=== PATIENT | male | born 1945 | race Caucasian/White ===

== ENCOUNTER 2017-12-07 08:00 | Outpatient (RCR) | payer MEDICARE, OTHER ==
[2017-09-14 08:20] VITALS: BP 118/75
--- NOTE | 2017-09-14 08:38 | ONC Progress Note - NP.Halsey ---
Patient History Date of Service Sep 14, 2017 Reason For Visit/HPI Patient is seen today in the infusion center for cycle 4 with Opdivo for his malignant melanoma of the scalp. He reports that he has a mild rash over his lower back and occasionally has itching in his left ear which last only 30 minutes and then goes away. He is currently using a steroid cream on his back as needed with good relief. No other areas of concern. No other side effects. Patient does report that he would like to go back to [place] for the summer months January, February, and March and would like to arrange treatment with Dr. Alston in [place]. I assured patient that as it got closer to that time that we would help assist a transition. Problem List (1) Melanoma of scalp Oncology History ONCOLOGY HISTORY 1. Malignant melanoma of scalp. a. Initial presentation with lesion on the left scalp, changing over the past six months prior to presentation. b. August 16, 2016: Biopsy of scalp lesion is performed. Pathology reveals malignant melanoma to 2.5 mm in depth. c. September 15, 2016: Patient undergoes wide local excision with sentinel lymph node biopsy. Pathology showed residual melanoma in the excision specimen , depth 1.1 mm. Scalp lymph node and lymph node in the parotid gland were positive for melanoma. Also, two of five sentinel lymph nodes were involved with melanoma (total of four of 10 positive lymph nodes). d. September 29, 2016: CT PET scan and MRI of brain are performed. There is no evidence of metastatic disease. e. November 03, 2016: Completion lymph node dissection, left parotidectomy with an additional two of 29 lymph nodes positive for melanoma. Patient is diagnosed with stage IIIC melanoma. f. Patient begins the S1404 clinical trial, and is randomized to the ipilimumab arm. g. 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 Patient also suffers subdural hematoma. He is treated with prednisone, Keppra recommended for three months. Subdural hematoma resolves spontaneously. h. Patient presents with recurrent mass behind left ear at site of scar. On July 11, 2017 this was surgically resected with pathology consistent with recurrent melanoma. i. Opdivo every 2 weeks started on 08/04/2017. 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 [place] Alcohol History He denies abuse Medications and Allergies Reported Medications Fluticasone Prop 50 Mcg Ns (FLONASE 50 MCG NS) 16 Gm [place].susp, 1 SPRAY NS BID , BOT 08/03/17 Oxycodone/Acetaminophen (PERCOCET 5/325 (OR EQUIV)) 1 Ea Tab, 1 - 2 EA PO Q4H Y , #30 01/25/13 Mometasone/Formoterol (Dulera 100 Mcg/5 Mcg Inhaler) 13 Gm Hfa.aer.ad, 13 GM IH DAILY Y 01/22/13 Discontinued Scripts Levofloxacin 500 Mg Tab (LEVAQUIN 500 MG TAB) 500 Mg Tablet, 500 MG PO DAILY for 5 Days, #5 TAB Prov:FOREIGN CALDERA ALLERGY NURSE-BC, ONC 08/24/17 Prednisone (PREDNISONE) 1 Mg Tab, 4 MG PO QDAY, #120 TAB 1 Refill Take 4mg daily x 7 days then try to decrease to 3mg daily Prov:FOREIGN CALDERA ALLERGY NURSE-BC, ONC 08/17/17 Allergies: Coded Allergies: No Known Drug Allergies (Verified , 01/25/13) Review of System/Physical Exam Review of Systems All Systems Reviewed/Normal: Yes, Except as Noted HEENT: Other (itching of the left ear occasionally) Skin: Positive for Skin Rash (lower back with mild itching that comes and goes) Physical Exam Vital Signs Temperature: 97.7 Pulse: 81 BP Systolic: 118 BP Diastolic: 75 Respiratory Rate: 18 O2 SAT: 94 O2 Delivery: Height (inches) 68.00 Weight lb: 166 Weight oz: Weight Kg (Maurilio): Pain: 0 ECOG Score: 0 General: Stable, Well Developed, Well Nourished HEENT: No Trauma, No Conjunctivitis, No Icterus, No Mucositis, No Oral Thrush Neck: Supple Lungs: Clear to Auscultation Heart: Regular Rate Abdomen: Soft and Nontender, No Hepatosplenomegaly, No Masses Extremities: No Cyanosis, No Clubbing, No Edema Lymphadenopathy: No Cervical Psychiatric: Mood appears normal Skin: Skin Rashes (mild diffusely scattered macule rash on lower back without evidence of erythema or infection, ), Other Diagnostic Studies Diagnostic Studies Laboratory Item Value Date Time White Blood Count 5.0 k/uL 09/14/17 08 Hemoglobin 14.8 g/dL 09/14/17 08 Hematocrit 42.8 % 09/14/17 08 Platelet Count 231 K/uL 09/14/17 0826 Neutrophils (%) (Auto) 45.5 % 09/14/17 0826 Lymphocytes (%) (Auto) 36.9 % 09/14/17 0826 Neutrophils # (Auto) 2.3 K/uL 09/14/17 0826 Lymphocytes # (Auto) 1.8 K/uL 09/14/17 0826 Sodium Level 136 mmol/L L 09/14/17 08 Laboratory Tests 09/14/17 08:26: Assessment and Plan Assessment & Plan Recurrent malignant melanoma of scalp. Juan Jose seems to be doing quite well with nivolumab infusions and denies any concerns. He is here to receive his fourth cycle today. He has developed a mild diffusely scattered rash over his lower back with occasional episodes of itching. He is currently using a cortisone cream which helps. He has not used an antihistamine but if symptoms increase we did discuss trying to use it. He would like to travel and spending the summer months in [place]. He would like to receive his treatments with Dr. Alston in [facility]. We will assist with his transition as it gets closer. He is scheduled to follow with Dr. Moncada n 10-05-17. I personally spent a total of 20 minutes. Of that 20 minutes was counseling/ coordination of patient's care. See my note above for details. Copies to: TAYLOR PERES NANCY J ALLERGY NURSE-BC, ONC Sep 14, 2017 08:38
[2017-09-14 11:10] VITALS: BP 111/67
[2017-09-28 08:11] VITALS: BP 109/89
[2017-09-28] MEDS: NS(*) 0.9% 100 ML BAG 100 ML IVPB PRN (08:42)
[2017-09-28 10:45] VITALS: BP 121/74
--- NOTE | 2017-09-28 19:24 | ONCOLOGY FOLLOW UP NOTE ---
EVENT DATE: September 28, 2017 REASON FOR FOLLOWUP Recurrent malignant melanoma of scalp. CHIEF COMPLAINT Sinus congestion. INTERIM HISTORY Juan Jose returns to clinic for a follow-up visit today. He is here to receive a nivolumab infusion. He reports that things have been going pretty well since our last visit. He has had no particular problems with his ongoing infusion, with the exception of some moderate "itchiness" of his arms and trunk. For the most part moisturizers and other topicals have been helpful, and he has had no worsening of rash. He reports no fever. He has had some sinus congestion, and he had recently been on a course of antibiotics for presumed sinusitis. The antibiotics brought significant improvement in his symptoms. He has been doing sinus washes at home. He reports an occasional cough and chest tightness, but none of this today. He has had no hemoptysis. His appetite is good, and his weight has been stable. He has been quite active since our last visit. He has had no problems with bowels or bladder. REVIEW OF SYSTEMS Otherwise negative, and all systems were reviewed. ONCOLOGY HISTORY 1. Malignant melanoma of scalp. a. Initial presentation with lesion on the left scalp, changing over the past six months prior to presentation. b. August 16, 2016: Biopsy of scalp lesion is performed. Pathology reveals malignant melanoma to 2.5 mm in depth. c. September 15, 2016: Patient undergoes wide local excision with sentinel lymph node biopsy. Pathology showed residual melanoma in the excision specimen , depth 1.1 mm. Scalp lymph node and lymph node in the parotid gland were positive for melanoma. Also, two of five sentinel lymph nodes were involved with melanoma (total of four of 10 positive lymph nodes). d. September 29, 2016: CT PET scan and MRI of brain are performed. There is no evidence of metastatic disease. e. November 03, 2016: Completion lymph node dissection, left parotidectomy with an additional two of 29 lymph nodes positive for melanoma. Patient is diagnosed with stage IIIC melanoma. f. Patient begins the S1404 clinical trial, and is randomized to the ipilimumab arm. g. 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 Patient also suffers subdural hematoma. He is treated with prednisone, Keppra recommended for three months. Subdural hematoma resolves spontaneously. h. Patient presents with recurrent mass behind left ear at site of scar. On July 11, 2017 this was surgically resected with pathology consistent with recurrent melanoma. i. July 2017: Initiation of nivolumab infusions. PAST MEDICAL HISTORY The patient is otherwise quite healthy. PAST SURGICAL HISTORY Please see history of present illness. Also, he has undergone left inguinal hernia repair, right shoulder surgery, and sinus surgery. CURRENT MEDICATIONS 1. Percocet p.r.n. 2. Dulera inhaler. 3. Flonase. 4. Keppra. 5. Prednisone 5 mg p.o. daily. ALLERGIES No known drug allergies. SOCIAL HISTORY Patient is a never smoker. He has about one alcoholic beverage per week. There is no history of illicit drug use. He lives at home with his . FAMILY HISTORY There is a history of Hodgkin's lymphoma in his mother, lung cancer in a maternal uncle, colon cancer in a paternal uncle. There is no known family history of melanoma or pancreatic malignancy. VITAL SIGNS Temperature is 98.0, blood pressure 109/89, heart rate is 82, respirations 16, oxygen saturation is 93% on room air. PHYSICAL EXAMINATION GENERAL: Patient is alert and oriented times three, in no apparent distress, sitting in the exam room chair. He is in good spirits and quite interactive. HEENT: Exam reveals anicteric sclerae. No significant oropharyngeal lesions. LUNGS: Clear to auscultation bilaterally. HEART: Exam reveals regular rate and rhythm. NEUROLOGIC: Exam is grossly nonfocal, although I did not test his gait today. EXTREMITIES: Exam reveals no edema, clubbing or cyanosis. SKIN: Exam reveals no dry skin over the arms, but no rash. LABORATORY STUDIES Reviewed per the [facility] record. ASSESSMENT AND PLAN Recurrent malignant melanoma of scalp. Juan Jose continues to do quite well symptomatically. He has had minimal side effects from ongoing nivolumab infusions, and nothing to suggest significant immune-related toxicity. As discussed, the plan will be for him to continue the nivolumab infusions per protocol. He will follow up with Estella Cavazos, nurse practitioner, in one month. I would tentatively plan to see him back in two months. He does report that he will likely be returning to [place] (the [facility]), for the spring months, potentially into the summer. This was discussed previously with Estella Cavazos, as well. I have assured him today that we would be more than happy to help with transition of care, forwarding of documents, etc. [facility] MAN[facility]ATTAN HOSPITALEvaristo
[2017-10-05 08:37] VITALS: BP 130/81
--- NOTE | 2017-10-05 09:12 | ONC Progress Note - NP.Halsey ---
Patient History Date of Service Oct 05, 2017 Reason For Visit/HPI ` Patient is seen in the Center today for concern of increased cough, shortness of breath, wheezing with yellow to green discolored sputum and green sinus drainage. Patient denies any fever or chills, no bone aches or generalized fatigue but reports that overall he just does not feel well. Patient has a prior history of sinus infections and usually can prevent them from settling in his chest with sinus washes. Unfortunately he feels that it is now in his chest and he is concerned about developing pneumonia. Patient is seen in the infusion center for treatment with Opdivo for his malignant melanoma of the scalp. He has tolerated treatment well without any of the possible side effects such as pneumonitis, colitis, thyroiditis. Patient is currently on prednisone 3 mg tab daily for recent history of autoimmune adrenal insufficiency. He is slowly tapering off of the prednisone. Oncology History ONCOLOGY HISTORY 1. Malignant melanoma of scalp. a. Initial presentation with lesion on the left scalp, changing over the past six months prior to presentation. b. August 16, 2016: Biopsy of scalp lesion is performed. Pathology reveals malignant melanoma to 2.5 mm in depth. c. September 15, 2016: Patient undergoes wide local excision with sentinel lymph node biopsy. Pathology showed residual melanoma in the excision specimen , depth 1.1 mm. Scalp lymph node and lymph node in the parotid gland were positive for melanoma. Also, two of five sentinel lymph nodes were involved with melanoma (total of four of 10 positive lymph nodes). d. September 29, 2016: CT PET scan and MRI of brain are performed. There is no evidence of metastatic disease. e. November 03, 2016: Completion lymph node dissection, left parotidectomy with an additional two of 29 lymph nodes positive for melanoma. Patient is diagnosed with stage IIIC melanoma. f. Patient begins the S1404 clinical trial, and is randomized to the ipilimumab arm. g. 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 Patient also suffers subdural hematoma. He is treated with prednisone, Keppra recommended for three months. Subdural hematoma resolves spontaneously. h. Patient presents with recurrent mass behind left ear at site of scar. On July 11, 2017 this was surgically resected with pathology consistent with recurrent melanoma. i. Opdivo every 2 weeks started on 08/04/2017. 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 [place] Alcohol History He denies abuse Smoking History: No Smoking Status: Never Smoker Exposure to Second Hand Smoke?: No Medications and Allergies Active Scripts Albuterol Sulfate (VENTOLIN HFA) 18 Gm Inh, 2 PUFF INH Q4-6H, #1 INH 1 Refill Prov:FOREIGN CALDERA DATA OFFICER-BC, ONC 10/05/17 Azithromycin (Z-PACK) 250 Mg Tablet, 0 PO QDAY, #6 DOSE-PACK Prov:FOREIGN CALDERA DATA OFFICER-BC, ONC 10/05/17 Reported Medications Dexamethasone (DEXAMETHASONE) 1 Mg Tab, 3 MG FT DAILY, TAB 09/28/17 Fluticasone Prop 50 Mcg Ns (FLONASE 50 MCG NS) 16 Gm [place].susp, 1 SPRAY NS BID , BOT 08/03/17 Oxycodone/Acetaminophen (PERCOCET 5/325 (OR EQUIV)) 1 Ea Tab, 1 - 2 EA PO Q4H Y , #30 01/25/13 Mometasone/Formoterol (Dulera 100 Mcg/5 Mcg Inhaler) 13 Gm Hfa.aer.ad, 13 GM IH DAILY Y 01/22/13 Allergies: Coded Allergies: No Known Drug Allergies (Verified , 01/25/13) Review of System/Physical Exam Review of Systems All Systems Reviewed/Normal: Yes, Except as Noted Respiratory: Positive for Cough, Positive for Expectoration, Positive for Shortness of Breath, Positive for Wheezing HEENT: Nasal Discharge Hematologic: Positive for Fatigue Physical Exam Vital Signs Temperature: 98.5 Pulse: 76 BP Systolic: 130 BP Diastolic: 81 Respiratory Rate: 16 O2 SAT: 97 O2 Delivery: Height (inches) 68.00 Weight lb: 166 Weight oz: Weight Kg (Maurilio): [phone] Pain: 0 ECOG Score: 1 General: Stable, Well Developed, Well Nourished, Not In Acute Distress HEENT: No Trauma, No Mucositis, No Oral Thrush, Sinus Tenderness (frontal and maxillary sinus tenderness with palpation) Neck: Supple Lungs: Not Clear to Auscultation (bilateral wheezing with expiration and rhales with inhalion) Extremities: No Edema Lymphadenopathy: No Cervical Psychiatric: Mood appears normal, Affect appears normal, Other (his is with him today) Skin: Other Diagnostic Studies Diagnostic Studies Laboratory Laboratory Tests 09/14/17 08:26 09/28/17 08:20 Laboratory Tests 09/14/17 08:26: White Blood Count 5.0, Hemoglobin 14.8, Hematocrit 42.8, Platelet Count 231, Neutrophils (%) (Auto) 45.5, Lymphocytes (%) (Auto) 36.9, Neutrophils # (Auto) 2.3, Lymphocytes # (Auto) 1.8, Magnesium Level 2.1, Thyroid Stimulating Hormone (TSH) 1.57, Free Thyroxine 1.01, Total Triiodothyronine 83 09/28/17 08:20: Sodium Level 138, Potassium Level 3.8, Chloride Level 104, Carbon Dioxide Level 22, Blood Urea Nitrogen 12, Creatinine 0.80, Glomerular Filtration Rate Calc > 60.0, Random Glucose 81, Calcium Level 9.1, Total Bilirubin 0.8, Aspartate Amino Transf (AST/SGOT) 24, Alanine Aminotransferase (ALT/SGPT) 25, Alkaline Phosphatase 61, Total Protein 7.1, Albumin 3.8 Assessment and Plan Assessment & Plan Patient is seen in the clinic today for probable sinusitis or upper respiratory infection. Patient has wheezing, cough and congestion leading to shortness of breath. He has green sinus discharge which is increased over the last 10 days. I will treat him with a Z-Gerson and albuterol inhaler. I will see patient next week with Opdivo treatment. Patient has a history of recurrent malignant melanoma of scalp. Juan Jose seems to be doing quite well with nivolumab infusions and denies any concerns. I personally spent a total of 20 minutes. Of that 20 minutes was counseling/ coordination of patient's care. See my note above for details. FOREIGN CALDERA DATA OFFICER-BC, ONC Oct 05, 2017 09:12
[2017-10-12 08:10] VITALS: BP 130/82
--- NOTE | 2017-10-12 10:28 | ONC Progress Note - NP.Halsey ---
Patient History Date of Service Oct 12, 2017 Reason For Visit/HPI Patient is seen in the clinic today for treatment with Opdivo cycle 6 for his malignant melanoma the scalp.. Patient reports that he is tolerating treatment without difficulty without possible side effects of colitis or thyroiditis. Patient is currently on prednisone 3 mg tablet for history of autoimmune adrenal insufficiency. Patient was seen in the clinic last week with increased cough, shortness of breath, wheezing with yellow to green discolored sputum and green sinus drainage. Patient denied any fever or chills, no bone aches or generalized fatigue but reported that overall he just does not feel well. He shared that he has a prior history of sinus infections and usually can prevent them from settling in his chest with sinus washes. He was started on a Z-Gerson and reports that his symptoms slowly improved but now have returned with the above symptoms. Patient was started on an inhaler and is using that with some relief. Patient also increased his prednisone to 10 mg tabs 3 days and reports that he had no relief so went back to the 3 mg tablet. Problem List (1) Cough in adult (2) Melanoma of scalp Oncology History ONCOLOGY HISTORY 1. Malignant melanoma of scalp. a. Initial presentation with lesion on the left scalp, changing over the past six months prior to presentation. b. August 16, 2016: Biopsy of scalp lesion is performed. Pathology reveals malignant melanoma to 2.5 mm in depth. c. September 15, 2016: Patient undergoes wide local excision with sentinel lymph node biopsy. Pathology showed residual melanoma in the excision specimen , depth 1.1 mm. Scalp lymph node and lymph node in the parotid gland were positive for melanoma. Also, two of five sentinel lymph nodes were involved with melanoma (total of four of 10 positive lymph nodes). d. September 29, 2016: CT PET scan and MRI of brain are performed. There is no evidence of metastatic disease. e. November 03, 2016: Completion lymph node dissection, left parotidectomy with an additional two of 29 lymph nodes positive for melanoma. Patient is diagnosed with stage IIIC melanoma. f. Patient begins the S1404 clinical trial, and is randomized to the ipilimumab arm. g. 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 Patient also suffers subdural hematoma. He is treated with prednisone, Keppra recommended for three months. Subdural hematoma resolves spontaneously. h. Patient presents with recurrent mass behind left ear at site of scar. On July 11, 2017 this was surgically resected with pathology consistent with recurrent melanoma. i. Opdivo every 2 weeks started on 08/04/2017. 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 [place] Alcohol History He denies abuse Smoking History: No Smoking Status: Never Smoker Exposure to Second Hand Smoke?: No Medications and Allergies Active Scripts Albuterol Sulfate (VENTOLIN HFA) 18 Gm Inh, 2 PUFF INH Q4-6H, #1 INH 1 Refill Prov:FOREIGN CALDERA MEDICAL OFFICE REPRESENTATIVE-BC, ONC 10/05/17 Azithromycin (Z-PACK) 250 Mg Tablet, 0 PO QDAY, #6 DOSE-PACK Prov:FOREIGN CALDERA MEDICAL OFFICE REPRESENTATIVE-BC, ONC 10/05/17 Reported Medications Dexamethasone (DEXAMETHASONE) 1 Mg Tab, 3 MG FT DAILY, TAB 09/28/17 Fluticasone Prop 50 Mcg Ns (FLONASE 50 MCG NS) 16 Gm [place].susp, 1 SPRAY NS BID , BOT 08/03/17 Oxycodone/Acetaminophen (PERCOCET 5/325 (OR EQUIV)) 1 Ea Tab, 1 - 2 EA PO Q4H Y , #30 01/25/13 Mometasone/Formoterol (Dulera 100 Mcg/5 Mcg Inhaler) 13 Gm Hfa.aer.ad, 13 GM IH DAILY Y 01/22/13 Allergies: Coded Allergies: No Known Drug Allergies (Verified , 01/25/13) Review of System/Physical Exam Review of Systems All Systems Reviewed/Normal: Yes, Except as Noted Constitutional: Positive for Recent Infection Respiratory: Positive for Cough, Positive for Expectoration (Green in color), Positive for Shortness of Breath, Positive for Wheezing Hematologic: Positive for Fatigue, Positive for Weakness Physical Exam Vital Signs Temperature: 97.4 Pulse: 70 BP Systolic: 130 BP Diastolic: 82 Respiratory Rate: 16 O2 SAT: 95 O2 Delivery: Height (inches) 68.00 Weight lb: 166 Weight oz: Weight Kg (Maurilio): [phone] Pain: 0 ECOG Score: 1 (Patient has increased fatigue today) General: Stable, Well Developed, Well Nourished, Not In Acute Distress HEENT: No Trauma, No Conjunctivitis, No Icterus, No Mucositis, No Oral Thrush, Sinus Tenderness Lungs: Not Clear to Auscultation (bilateral wheezing and inspiratory rhales) Heart: Regular Rate, Regular Rhythm, No Gallops Abdomen: Soft and Nontender, No Hepatosplenomegaly, No Masses Extremities: No Cyanosis, No Clubbing, No Edema Lymphadenopathy: No Cervical, No Subclavicular Skin: No Skin Rashes, No Bruising, No Purpura, Other Diagnostic Studies Diagnostic Studies Laboratory CBC today shows a white cell count of 5700, hemoglobin of 15.5, hematocrit of 44.9 with platelet count of 244,000. Eosinophils are elevated at 7.5, neutrophil is decreased at 44.9 absolute neutrophil count is 2500 Laboratory Tests 09/14/17 08:26 10/12/17 08:20 Laboratory Tests 09/14/17 08:26: White Blood Count 5.0, Hemoglobin 14.8, Hematocrit 42.8, Platelet Count 231, Neutrophils (%) (Auto) 45.5, Lymphocytes (%) (Auto) 36.9, Neutrophils # (Auto) 2.3, Lymphocytes # (Auto) 1.8, Magnesium Level 2.1, Thyroid Stimulating Hormone (TSH) 1.57, Free Thyroxine 1.01, Total Triiodothyronine 83 10/12/17 08:20: Sodium Level 139, Potassium Level 3.6, Chloride Level 105, Carbon Dioxide Level 25, Blood Urea Nitrogen 13, Creatinine 0.90, Glomerular Filtration Rate Calc > 60.0, Random Glucose 83, Calcium Level 9.2, Total Bilirubin 0.8, Aspartate Amino Transf (AST/SGOT) 26, Alanine Aminotransferase (ALT/SGPT) 32, Alkaline Phosphatase 65, Total Protein 7.1, Albumin 3.8 Assessment and Plan Assessment & Plan Patient is seen in the clinic today for treatment with Opdivo for his melanoma of the scalp. Patient previously was treated with a Z-Gerson for probable sinusitis and upper respiratory infection. Patient continues to have wheezing, cough and congestion leading to shortness of breath. Patient is using an albuterol inhaler with some relief. I will do a chest x-ray today to further evaluate patient's chronic condition as it has been going on for approximately 1 month overall. I will treat patient with Levaquin 750 mg tab 10 days. Written prescription was given to patient because [employer] was down. Patient will be seen in the clinic with his next treatment but certainly will call if his symptoms do not improve. Chest x-ray is currently pending patient will receive results once report is completed. X-ray was done cousin of chronic cough, continue possible infection, monitoring for side effect of pneumonitis with Opdivo and monitoring for melanoma. I personally spent a total of 30 minutes. Of that 20 minutes was counseling/ coordination of patient's care. See my note above for details. FOREIGN CALDERA MEDICAL OFFICE REPRESENTATIVE-BC, ONC Oct 12, 2017 10:28
[2017-10-12] MEDS: NS(*) 0.9% 100 ML BAG 100 ML IVPB PRN (10:30)
--- NOTE | 2017-10-12 11:04 | RADIOLOGY IMAGING REPORT ---
FACILITY: [facility] PATIENT NAME: Juan Jose Kelly : 1945 MR: [id number] V: [id number] EXAM DATE: ORDERING PHYSICIAN: NAOMIE MEDEL TECHNOLOGIST: Location: [facility] [place] Patient: Juan Jose Kelly : 1945 Visit/Account:[id number] Date of Sevice: 10/12/2017 Exam type: CHEST SINGLE VIEW History: Cancer patient Comparison: January 22, 2013. Findings: The lungs are free of acute effusions, infiltrates or edema. Cardiac silhouette is normal in size. Trachea is in midline. There is very mild right hilar prominence.. If of concern CT of the chest ma y be helpful IMPRESSION: 1. Mild right hilar prominence although no evidence of focal infiltrates. Report Dictated By: Bianca Bobby MD at 10/12/2017 10:58 AM Report E-Signed By: Bianca Bobby MD at 10/12/2017 11:01 AM WSN:[email or web address]
[2017-10-12 11:07] LABS: PLATELET COUNT, AUTOMATED 244 K/uL (150-450)
--- NOTE | 2017-10-26 08:27 | ONC Progress Note - NP.Halsey ---
Patient History Date of Service Oct 26, 2017 Reason For Visit/HPI Patient is seen in the clinic today for treatment with Opdivo cycle 7 for his malignant melanoma the scalp. Patient reports that he is feeling well status post antibiotic therapy. He continues to have clear sinus drainage which is irritating the back of his throat causing him to cough. Occasionally he has tightness of the chest and uses his inhaler. He has not been exercising his previous due to not feeling well. He does feel that he can start exercising again. He usually walks around the park for his exercise. Patient reports that on the left temporal area he has a new palpable movable soft tissue area approximately 2 mm in size. He noticed this over the last week. He is scheduled to see Dr. Aren Harry on Tuesday and will have this evaluated. Continues on prednisone 3 mg tablet daily. Problem List (1) Cough in adult (2) Melanoma of scalp Oncology History ONCOLOGY HISTORY 1. Malignant melanoma of scalp. a. Initial presentation with lesion on the left scalp, changing over the past six months prior to presentation. b. August 16, 2016: Biopsy of scalp lesion is performed. Pathology reveals malignant melanoma to 2.5 mm in depth. c. September 15, 2016: Patient undergoes wide local excision with sentinel lymph node biopsy. Pathology showed residual melanoma in the excision specimen , depth 1.1 mm. Scalp lymph node and lymph node in the parotid gland were positive for melanoma. Also, two of five sentinel lymph nodes were involved with melanoma (total of four of 10 positive lymph nodes). d. September 29, 2016: CT PET scan and MRI of brain are performed. There is no evidence of metastatic disease. e. November 03, 2016: Completion lymph node dissection, left parotidectomy with an additional two of 29 lymph nodes positive for melanoma. Patient is diagnosed with stage IIIC melanoma. f. Patient begins the S1404 clinical trial, and is randomized to the ipilimumab arm. g. 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 Patient also suffers subdural hematoma. He is treated with prednisone, Keppra recommended for three months. Subdural hematoma resolves spontaneously. h. Patient presents with recurrent mass behind left ear at site of scar. On July 11, 2017 this was surgically resected with pathology consistent with recurrent melanoma. i. Opdivo every 2 weeks started on 08/04/2017. 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 [place] Alcohol History He denies abuse Smoking History: No Smoking Status: Never Smoker Exposure to Second Hand Smoke?: No Medications and Allergies Active Scripts Albuterol Sulfate (VENTOLIN HFA) 18 Gm Inh, 2 PUFF INH Q4-6H, #1 INH 1 Refill Prov:FOREIGN [employer] PERFORMANCE MANAGEMENT CONSULTANT-BC, ONC 10/05/17 Azithromycin (Z-PACK) 250 Mg Tablet, 0 PO QDAY, #6 DOSE-PACK Prov:FOREIGN [employer] PERFORMANCE MANAGEMENT CONSULTANT-BC, ONC 10/05/17 Reported Medications Dexamethasone (DEXAMETHASONE) 1 Mg Tab, 3 MG FT DAILY, TAB 09/28/17 Fluticasone Prop 50 Mcg Ns (FLONASE 50 MCG NS) 16 Gm [place].susp, 1 SPRAY NS BID , BOT 08/03/17 Oxycodone/Acetaminophen (PERCOCET 5/325 (OR EQUIV)) 1 Ea Tab, 1 - 2 EA PO Q4H Y , #30 01/25/13 Mometasone/Formoterol (Dulera 100 Mcg/5 Mcg Inhaler) 13 Gm Hfa.aer.ad, 13 GM IH DAILY Y 01/22/13 Allergies: Coded Allergies: No Known Drug Allergies (Verified , 01/25/13) Review of System/Physical Exam Review of Systems All Systems Reviewed/Normal: Yes, Except as Noted Respiratory: Positive for Cough HEENT: Nasal Discharge (clear sinus discharge patient reports that he does sinus wash several times a day.), Other (irritation to the posterior pharynxs without pain) Hematologic: Positive for Fatigue (mild fatigue this is improved) Skin: Positive for Other (new skin area 2 mm in size raised in palpable on the left parietal area of the scalp) Physical Exam Vital Signs Temperature: 97.4 Pulse: 70 BP Systolic: 130 BP Diastolic: 82 Respiratory Rate: 16 O2 SAT: 95 O2 Delivery: Height (inches) 68.00 Weight lb: 0 Weight oz: Weight Kg (Maurilio): [id number] Pain: 0 ECOG Score: 0 General: Stable, Well Developed, Well Nourished, Not In Acute Distress HEENT: No Trauma, No Conjunctivitis, No Icterus, No Mucositis, No Oral Thrush, No Sinus Tenderness, Other (erythema beefy red noted in the posterior pharynx with a papule irritation. No signs and symptoms of candidiasis noted. No foul breath smell. Good oral hygiene.) Neck: Supple Lungs: Clear to Auscultation Heart: Regular Rate, Regular Rhythm Abdomen: Soft and Nontender, No Hepatosplenomegaly, Other (bowel sounds are active) Extremities: No Cyanosis Lymphadenopathy: No Cervical, No Subclavicular, No Axillary Psychiatric: Mood appears normal, Affect appears normal Skin: No Skin Rashes, No Bruising, No Purpura, Other (proximally at 2 mm movable palpable nodule on the left parietal scalp. This is new from previous examination and above previous skin graft area from removable of melanoma. No other areas noted over the scalp, face and behind the ears.) Diagnostic Studies Diagnostic Studies Laboratory Item Value Date Time White Blood Count 6.0 k/uL 10/26/17 0830 Hemoglobin 16.0 g/dL 10/26/17 0830 Hematocrit 46.4 % 10/26/1730 Platelet Count 253 K/uL 10/26/17 0830 Neutrophils (%) (Auto) 43.3 % 10/26/17 0830 Lymphocytes (%) (Auto) 37.7 % 10/26/1730 Neutrophils # (Auto) 2.6 K/uL 10/26/17 0830 Lymphocytes # (Auto) 2.3 K/uL 10/26/17 0830 Thyroid Stimulating Hormone (TSH) 1.57 uIU/ml 09/14/17 0826 Free Thyroxine 1.01 ng/dl 09/14/17 0826 Total Triiodothyronine 83 ng/dL 09/14/17 0826 Laboratory Tests 10/12/17 08:20 10/12/17 08:53 Laboratory Tests 09/14/17 08:26: Magnesium Level 2.1, Thyroid Stimulating Hormone (TSH) 1.57, Free Thyroxine 1.01 , Total Triiodothyronine 83 10/12/17 08:20: Sodium Level 139, Potassium Level 3.6, Chloride Level 105, Carbon Dioxide Level 25, Blood Urea Nitrogen 13, Creatinine 0.90, Glomerular Filtration Rate Calc > 60.0, Random Glucose 83, Calcium Level 9.2, Total Bilirubin 0.8, Aspartate Amino Transf (AST/SGOT) 26, Alanine Aminotransferase (ALT/SGPT) 32, Alkaline Phosphatase 65, Total Protein 7.1, Albumin 3.8 10/12/17 08:53: White Blood Count 5.7, Red Blood Count 4.74, Hemoglobin 15.5, Hematocrit 44.9, Mean Corpuscular Volume 94.8, Mean Corpuscular Hemoglobin 32.8, Mean Corpuscular Hemoglobin Concent 34.6, Red Cell Distribution Width 12.8, Platelet Count 244, Mean Platelet Volume 9.0, Neutrophils (%) (Auto) 44.9, Lymphocytes (% ) (Auto) 38.1, Monocytes (%) (Auto) 8.4, Eosinophils (%) (Auto) 7.5, Basophils ( %) (Auto) 1.1, Nucleated RBC Relative Count (auto) 0.0, Neutrophils # (Auto) 2.5 , Lymphocytes # (Auto) 2.2, Monocytes # (Auto) 0.5, Eosinophils # (Auto) 0.4, Basophils # (Auto) 0.1, Nucleated RBC Absolute Count (auto) 0.00 Assessment and Plan Assessment & Plan Patient is seen in the clinic today for treatment with Opdivo for his melanoma of the scalp. Patient previously was treated with a Z-Gerson for probable sinusitis and upper respiratory infection. Patient continues to have wheezing, cough and congestion leading to shortness of breath. Patient is using an albuterol inhaler with some relief. Chest x-ray on 10-12-17 showed Mild right hilar prominence although no evidence of focal infiltrates . Patient was treated with Levaquin 750 mg tab 10 days. Patient did not call to report worsening of symptoms. Today he reports that symptoms are resolving and he is feeling significantly better. He continues with sinus rinses, nasal spray, an inhaler as needed. Patient continues to have clear sinus discharge. He has not tried an antihistamine and is willing to try 3-5 days to see if the discharge will decrease allowing the back of his throat to resolve. This may decrease his cough. He will start exercising by walking. Patient is scheduled to see Dr. Aren Harry on Tuesday with his . He has a new palpable nodule small in size that will be evaluated. This area is directly above previous skin grafts and removal of a melanoma. Overall patient is tolerating Opdivo without difficulty. I personally spent a total of 20 minutes. Of that 20 minutes was counseling/ coordination of patient's care. See my note above for details. Copies to: AREN HARRY MD, NANCY J PERFORMANCE MANAGEMENT CONSULTANT-BC, ONC Oct 26, 2017 08:27
[2017-10-26 08:42] VITALS: BP_SYST 124; BP_SYST 142; BP_DIAS 104; BP_DIAS 84
[2017-10-26] MEDS: NS(*) 0.9% 100 ML BAG 100 ML IVPB PRN (09:00)
[2017-10-26 10:29] VITALS: BP 113/65
[2017-11-02 08:28] VITALS: BP 116/77
--- NOTE | 2017-11-02 10:30 | RADIOLOGY IMAGING REPORT ---
FACILITY: [facility] PATIENT NAME: Juan Jose Kelly : 1945 MR: [id number] V: [id number] EXAM DATE: ORDERING PHYSICIAN: NAOMIE MEDEL TECHNOLOGIST: Location: [facility] [place] Patient: Juan Jose Kelly : 1945 Visit/Account:[id number] Date of Sevice: 11/02/2017 CTA CHEST WW/O CNTR (PULM ANG) Provided history: Dyspnea. History of melanoma. Additional pertinent history: none TECHNIQUE: Pulmonary embolus protocol - Thin-slice axial imaging of the chest was performed during maximal pulmo nary arterial opacification with intravenous nonionic iodinated contrast. 3D coronal slab MIPs and 2D reconstructions in the coronal and sagittal planes were performed to aid in pulmonary embolus detect ion. Director Of [employer] images have been stored on PACS. EKG gating: no Contrast: 75 ml Isovue 370 One of the following dose optimization techniques was utilized in the performance of this exam: Autom ated exposure control; adjustment of the mA and/or kV according to the patient's size; or use of an i terative reconstruction technique. Specific details can be referenced in the facility's radiology C T exam operational policy. COMPARISON STUDIES: none FINDINGS: Angiographic Findings: Pulmonary arteries: There are no filling defects in the main, right, left, lobar, segmental or visual ized sub-segmental branches of the pulmonary arterial system Thoracic aorta: negative. Additional non-angiographic findings: Lungs / pleura / nancy: No infiltrate or effusion. 3 x 4 mm noncalcified nodule right middle lobe, image 70. This is along the course of the minor fiss ure and is probably a benign perifissural lymph node. Another noncalcified nodule right lower lobe, image 162 measures 3 x 4 mm. Additional punctate micro nodules elsewhere. Lower neck: negative Mediastinum: negative Heart / pericardium: negative Other Vessels: negative Body wall: negative Upper abdomen: negative Lymph nodes: negative Bones: negative IMPRESSION: 1. No CT evidence of acute pulmonary embolism. 2. No acute pulmonary disease. 3. There are 2 noncalcified nodules described in the right lung with additional punctate micronodule s elsewhere. Largest average diameter nodule is 3.5 mm. In this patient with known melanoma, sugges t low-dose CT chest in 6 months, unless comparison to any outside studies reveals stability. Call report attempted, unable to be rendered due to poor phone connection. I have asked our informat ion non emergency services ambulance driver is to read report to the referring office. Report Dictated By: Aidan Romero MD at 11/02/2017 9:56 AM Report E-Signed By: Aidan Romero MD at 11/02/2017 10:24 AM WSN:[email or web address]
--- NOTE | 2017-11-02 11:05 | Oncology Note ---
Patient is seen in the clinic today to review CT angiogram of the chest completed earlier this morning. Please see Dr. Neville's dictation. In review of the diagnostic study there is no evidence of a pulmonary embolism. Patient does have 2 noncalcified nodules in the right lung with additional punctate micronodules elsewhere. The largest nodule is 3.5 mm. The recommendation is to suggest a low-dose CT of the chest in 6 months. In addition patient is already scheduled to follow with Dr. Aren Harry ENT for evaluation of a palpable nodule on the left upper parietal lobe of the scalp. Because patient continues to have sinus pressure and sinus drainage status post antibiotics and a clear CT scan, it is recommended that he be evaluated by Dr. Aren Harry. This was discussed with patient and spouse. They both agree with plan of care. Patient does report that he has had prior surgeries of the sinuses and a history of chronic sinusitis. He is completing sinus nasal rinse several times daily and more recently reports that the sinus drainage has been clear to scant yellow. Again patient has had no fever or chills. He denies shortness of breath but feels that just occasionally he cannot obtain a deep breath. There was no indication of pneumonitis found on recent CT scan. Patient is scheduled to follow with me in 1 week with his infusion. FOREIGN CALDERA LOADING INSPECTOR-BC, ONC Nov 02, 2017 11:05
--- NOTE | 2017-11-02 18:37 | ONCOLOGY FOLLOW UP NOTE ---
EVENT DATE: November 02, 2017 REASON FOR FOLLOWUP Recurrent malignant melanoma of scalp. CHIEF COMPLAINT Cough, wheezing. INTERIM HISTORY Juan Jose returns to clinic for a follow-up visit today. He is accompanied by his . He continues on nivolumab infusions per protocol. For the most part, he reports that he has been tolerating these just fine. Unfortunately, he has continued to have a nagging cough, and this has progressed somewhat to wheezing. He reports no fever. He does state that his chest "tightens up a little" with exertion, leading to modest shortness of breath. He is not sure if his oxygen levels have been low. He reports no palpitations. He does have a very modestly productive cough without hemoptysis. He has been on several antibiotics recently, with some transient improvement in his symptoms, but they have not definitively improved/resolved altogether. He reports also a small bump on his left scalp, and he and his had planned to visit with Dr. Harry in ENT, but this appointment could not be made recently. They are going to try again. Otherwise, his appetite seems to be picking up, although he has lost a few pounds as he has gone through immunotherapy treatments. He reports no nausea. He has had no problems with his bowel habits. He does have insomnia from time to time. REVIEW OF SYSTEMS Otherwise negative, and all systems were reviewed. ONCOLOGY HISTORY 1. Malignant melanoma of scalp. a. Initial presentation with lesion on the left scalp, changing over the past six months prior to presentation. b. August 16, 2016: Biopsy of scalp lesion is performed. Pathology reveals malignant melanoma to 2.5 mm in depth. c. September 15, 2016: Patient undergoes wide local excision with sentinel lymph node biopsy. Pathology showed residual melanoma in the excision specimen , depth 1.1 mm. Scalp lymph node and lymph node in the parotid gland were positive for melanoma. Also, two of five sentinel lymph nodes were involved with melanoma (total of four of 10 positive lymph nodes). d. September 29, 2016: CT PET scan and MRI of brain are performed. There is no evidence of metastatic disease. e. November 03, 2016: Completion lymph node dissection, left parotidectomy with an additional two of 29 lymph nodes positive for melanoma. Patient is diagnosed with stage IIIC melanoma. f. Patient begins the S1404 clinical trial, and is randomized to the ipilimumab arm. g. 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 Patient also suffers subdural hematoma. He is treated with prednisone, Keppra recommended for three months. Subdural hematoma resolves spontaneously. h. Patient presents with recurrent mass behind left ear at site of scar. On July 11, 2017 this was surgically resected with pathology consistent with recurrent melanoma. i. July 2017: Initiation of nivolumab infusions. PAST MEDICAL HISTORY The patient is otherwise quite healthy. PAST SURGICAL HISTORY Please see history of present illness. Also, he has undergone left inguinal hernia repair, right shoulder surgery, and sinus surgery. CURRENT MEDICATIONS 1. Percocet p.r.n. 2. Dulera inhaler. 3. Flonase. 4. Keppra. 5. Prednisone 5 mg p.o. daily. ALLERGIES No known drug allergies. SOCIAL HISTORY Patient is a never smoker. He has about one alcoholic beverage per week. There is no history of illicit drug use. He lives at home with his . FAMILY HISTORY There is a history of Hodgkin's lymphoma in his mother, lung cancer in a maternal uncle, colon cancer in a paternal uncle. There is no known family history of melanoma or pancreatic malignancy. VITAL SIGNS Temperature is 99.2, blood pressure 116/77, heart rate is 77, respirations 16, oxygen saturation is 95% on room air. Weight is 74.3 kg. PHYSICAL EXAMINATION GENERAL: Patient is alert and oriented times three, in no apparent distress, sitting in the exam room chair. He is interactive and quite pleasant. HEENT: Exam reveals anicteric sclerae. No significant oropharyngeal lesions. NEUROLOGIC: Exam is grossly nonfocal, and his gait today. LUNGS: Exam reveals wheezing bilaterally. HEART: Exam reveals regular rate and rhythm. SKIN: Exam reveals no concerning rash or lesions. He does have a very small raised, normal colored lesion over the left scalp that is nontender. LABORATORY STUDIES Reviewed per the [employer] record. IMAGING None today. ASSESSMENT AND PLAN Recurrent malignant melanoma. For the most part, Juan Jose seems to be tolerating ongoing nivolumab infusions without obvious significant toxicity. We did discuss his ongoing sinus congestion and now pulmonary symptoms to include wheezing and perhaps some subjective shortness of breath. We discussed possible etiologies for these symptoms, in particular his pulmonary symptoms. Of concern would be for potential pneumonitis due to his ongoing immunotherapy, but this seems less likely at this point. He does have a history of asthma/ reactive airways disease in childhood, but this has not been problematic for years. He has never smoked. I do not think that he has pneumonia clinically, but with his history of recurrent melanoma he is at risk of pulmonary embolus. We will have him ambulate in the hallway today with pulse oximeter to see if his oxygen saturations drop. I will send him for a CT angiogram of the chest to further evaluate his symptoms. We will have him return to clinic later today after his CT scan is performed so that we may offer appropriate therapy. I will plan to have him follow up with Estella Cavazos in one week, when he is here to tentatively receive his next nivolumab infusion. MTDD
--- NOTE | 2017-11-02 18:41 | ONCOLOGY FOLLOW UP NOTE ---
EVENT DATE: November 02, 2017 ADDENDUM (copy to Dr. Aren Harry) MTDD
[2017-11-09 08:13] VITALS: BP 132/90
[2017-11-09] MEDS: NS(*) 0.9% 100 ML BAG 100 ML IVPB PRN (09:00)
[2017-11-09 10:03] VITALS: BP 118/73
[2017-11-23 08:07] VITALS: BP 114/74
[2017-11-23] MEDS: NS(*) 0.9% 100 ML BAG 100 ML IVPB PRN (08:32)
--- NOTE | 2017-11-23 09:19 | ONC Progress Note - NP.Halsey ---
Patient History Date of Service Nov 23, 2017 Reason For Visit/HPI Patient is seen in the clinic today for treatment with Opdivo cycle 9. Overall patient reports that he is feeling very well and feels that he has recovered from his previous shortness of breath and possibly upper respiratory infection. He is having some constipation occasionally and takes a stool softener as needed. He is able to exercise daily. He recently followed with Dr. Aren Harry and the palpable nodule on the left upper scalp was positive for melanoma. This is been removed and patient is following with Dr. Harry in the near future. Patient questioned about a CT scan of the chest abdomen and pelvis. He recently had a CT angiogram which was unremarkable. I told patient I felt that we could continue without a CT for a couple more treatments. He agrees with this plan. He continues on prednisone 3 mg tablet daily. He does feel that he can start exercising again. He usually walks around the park for his exercise. Patient reports that on the left temporal area he has a new palpable movable soft tissue area approximately 2 mm in size. He noticed this over the last week. He is scheduled to see Dr. Aren Harry on Tuesday and will have this evaluated. Continues on prednisone 3 mg tablet daily. Oncology History ONCOLOGY HISTORY 1. Malignant melanoma of scalp. a. Initial presentation with lesion on the left scalp, changing over the past six months prior to presentation. b. August 16, 2016: Biopsy of scalp lesion is performed. Pathology reveals malignant melanoma to 2.5 mm in depth. c. September 15, 2016: Patient undergoes wide local excision with sentinel lymph node biopsy. Pathology showed residual melanoma in the excision specimen , depth 1.1 mm. Scalp lymph node and lymph node in the parotid gland were positive for melanoma. Also, two of five sentinel lymph nodes were involved with melanoma (total of four of 10 positive lymph nodes). d. September 29, 2016: CT PET scan and MRI of brain are performed. There is no evidence of metastatic disease. e. November 03, 2016: Completion lymph node dissection, left parotidectomy with an additional two of 29 lymph nodes positive for melanoma. Patient is diagnosed with stage IIIC melanoma. f. Patient begins the S1404 clinical trial, and is randomized to the ipilimumab arm. g. 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 Patient also suffers subdural hematoma. He is treated with prednisone, Keppra recommended for three months. Subdural hematoma resolves spontaneously. h. Patient presents with recurrent mass behind left ear at site of scar. On July 11, 2017 this was surgically resected with pathology consistent with recurrent melanoma. i. Opdivo every 2 weeks started on 08/04/2017. Chest x-ray for chronic cough with Mild right hilar prominence although no evidence of focal infiltrates j. Melanoma lesion excised by Dr. Aren Harry October 2017, left frontal scalp. 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 [place] Alcohol History He denies abuse Smoking History: No Smoking Status: Never Smoker Exposure to Second Hand Smoke?: No Medications and Allergies Active Scripts Prednisone (PREDNISONE) 1 Mg Tab, 2 MG PO QDAY for 30 Days, #30 TAB 1 Refill Prov:FOREIGN [employer] PROJECT ACCOUNT MANAGER-BC, ONC 11/23/17 Methylprednisolone (METHYLPREDNISOLONE) 4 Mg Tab.ds.pk, 4 MG PO DIRECTED, #1 TAB Prov:FOREIGN [employer] PROJECT ACCOUNT MANAGER-BC, ONC 11/02/17 Albuterol Sulfate (VENTOLIN HFA) 18 Gm Inh, 2 PUFF INH Q4-6H, #1 INH 1 Refill Prov:FOREIGN CALDERA PROJECT ACCOUNT MANAGER-BC, ONC 10/05/17 Reported Medications Levothyroxine Sodium (LEVOTHYROXINE SODIUM) 25 Mcg Tablet, 25 MCG PO QDAY 11/02/17 Fluticasone Prop 50 Mcg Ns (FLONASE 50 MCG NS) 16 Gm [facility].susp, 1 SPRAY NS BID , BOT 08/03/17 Oxycodone/Acetaminophen (PERCOCET 5/325 (OR EQUIV)) 1 Ea Tab, 1 - 2 EA PO Q4H Y , #30 01/25/13 Mometasone/Formoterol (Dulera 100 Mcg/5 Mcg Inhaler) 13 Gm Hfa.aer.ad, 13 GM IH DAILY Y 01/22/13 Allergies: Coded Allergies: No Known Drug Allergies (Verified , 01/25/13) Review of System/Physical Exam Review of Systems All Systems Reviewed/Normal: Yes, Except as Noted Respiratory: Positive for Shortness of Breath (significantly improved, patient has a history of COPD.) Gastrointestinal: Constipation Skin: Positive for Other (2 mm raised palpable left frontal scalp lesion removed, scab remains.) Physical Exam Vital Signs Temperature: 97.3 Pulse: 68 BP Systolic: 114 BP Diastolic: 74 Respiratory Rate: 16 O2 SAT: 98 O2 Delivery: Height (inches) 68.00 Weight lb: 0 Weight oz: Weight Kg (Maurilio): [id number] Pain: 0 ECOG Score: 0 General: Stable, Well Developed, Well Nourished, Not In Acute Distress HEENT: No Trauma, No Conjunctivitis, No Icterus, No Mucositis, No Oral Thrush Neck: Supple Lungs: Clear to Auscultation Heart: Regular Rate, Regular Rhythm, No Gallops Abdomen: Soft and Nontender, No Hepatosplenomegaly, Other (bowel sounds are active) Extremities: No Cyanosis, No Clubbing, No Edema Lymphadenopathy: No Cervical Psychiatric: Mood appears normal Skin: No Skin Rashes, No Bruising, No Purpura, Other (left frontal scalp lesion removed, no erythema or symptoms of infection. No other lesions noted over the scalp.) Diagnostic Studies Diagnostic Studies Laboratory Laboratory Tests 10/26/17 08:30 11/23/17 08:18 Laboratory Tests 09/14/17 08:26: Total Triiodothyronine 83 10/12/17 08:53: Red Blood Count 4.74, Mean Corpuscular Volume 94.8, Mean Corpuscular Hemoglobin 32.8, Mean Corpuscular Hemoglobin Concent 34.6, Red Cell Distribution Width 12.8 , Mean Platelet Volume 9.0, Monocytes (%) (Auto) 8.4, Eosinophils (%) (Auto) 7.5 , Basophils (%) (Auto) 1.1, Nucleated RBC Relative Count (auto) 0.0, Monocytes # (Auto) 0.5, Eosinophils # (Auto) 0.4, Basophils # (Auto) 0.1, Nucleated RBC Absolute Count (auto) 0.00 10/26/17 08:30: White Blood Count 6.0, Hemoglobin 16.0, Hematocrit 46.4, Platelet Count 253, Neutrophils (%) (Auto) 43.3, Lymphocytes (%) (Auto) 37.7, Neutrophils # (Auto) 2.6, Lymphocytes # (Auto) 2.3, Magnesium Level 2.2, Thyroid Stimulating Hormone (TSH) 1.12, Free Thyroxine 1.15, Free Triiodothyronine 2.8 11/23/17 08:18: Sodium Level 136, Potassium Level 3.5, Chloride Level 104, Carbon Dioxide Level 22, Blood Urea Nitrogen 13, Creatinine 0.80, Glomerular Filtration Rate Calc > 60.0, Random Glucose 92, Calcium Level 8.6, Total Bilirubin 0.6, Aspartate Amino Transf (AST/SGOT) 20, Alanine Aminotransferase (ALT/SGPT) 31, Alkaline Phosphatase 52, Total Protein 6.5, Albumin 3.6 Assessment and Plan Assessment & Plan Patient is seen in the clinic today for treatment with Opdivo for his melanoma of the scalp. He is scheduled for cycle 9 today given every 2 weeks. Patient is tolerating treatment without difficulty. Recent melanoma of the left scalp removed by Dr. Aren Harry, we will need to obtain pathology. No other areas noted on skin exam. Patient remains on 2 mg prednisone for at least 2 more weeks and then we will try to decrease prednisone to 1 mg tab for a month. Patient agrees with this plan of care. Patient will continue to exercise. No concerns today. Plan: Prednisone 2 mg tab 2 weeks and then decrease to 1 mg 4 weeks. Refill sent [facility]. Patient recently had CT angiogram of the chest which was unremarkable. CT chest abdomen and pelvis to be completed after cycle 11 or 12. Patient to return in 2 weeks with Opdivo. Obtain pathology from Dr. Aren Harry on recent positive melanoma in the left frontal scalp I personally spent a total of 20 minutes. Of that 20 minutes was counseling/ coordination of patient's care. See my note above for details. Copies to: AREN HARRY MD; NAOMIE MEDEL MD, NANCY J PROJECT ACCOUNT MANAGER-BC, ONC Nov 23, 2017 09:19
[~2017-12-07] VITALS: Ht 172.7 cm; Wt 75.4 kg
[~2017-12-07 08:00] MED LIST: ALB18R INH; ALTEPLASE RECOMB 2 MG VIAL IVP PRN; AZIT-17 PO; COM14R INH; DEX1 FT; DEXTROSE 5%(*) 100 ML BAG 100 ML IVPB PRN; DOC100 PO; DUL100/5PT IH; FLUT16SP19 NS; HEPARIN FLSH (PORT) 500 UN/5ML IVP PRN; IOPAMIDOL 76% 75 ML INFUS BTL 75 ML ONE; LEVO-85 PO; LEVO25TA61 PO; LIDOCAINE/SOD BICARB 8.4% SYR ID PRN; METH4TAB66 PO; NIVOLUMAB 100 MG SDV 200 MG, NIVOLUMAB 40 MG/4 ML SDV 40 MG in NS(*) 0.9% 100 ML BAG 10... IV ONE; NS 0.9% 150 ML BAG 150 ML ONE; NS(*) 0.9% 500 ML BAG 500 ML IV PRN; OMEG-11 PO; OXYC1TAB54 PO; OXYC20TA86 PO; PER PO; PRE1 PO; PRED-420 PO; PRED20TA6 PO; WATER STERILE 10 ML VIAL IVP PRN
[2017-12-07 08:04] VITALS: BP 106/74
[2017-12-07] MEDS: NS(*) 0.9% 100 ML BAG 100 ML IVPB PRN (08:30)
[2017-12-07] MEDS ORDERED: NIVOLUMAB 100 MG SDV 200 MG, NIVOLUMAB 40 MG/4 ML SDV 40 MG in NS(*) 0.9% 100 ML BAG 10... IV ONE ×2 (09:45→10:00)
--- NOTE | 2017-12-07 18:30 | ONCOLOGY FOLLOW UP NOTE ---
EVENT DATE: December 07, 2017 REASON FOR FOLLOWUP Recurrent malignant melanoma of scalp. CHIEF COMPLAINT Wheezing. INTERIM HISTORY Juan Jose returns to clinic for a follow-up visit today. He is accompanied by his and friend. He continues on nivolumab infusions per protocol. He reports that he has been feeling about the same in general, and that he has had minimal side effects, if any, from the nivolumab. He does report some ongoing itchiness , but this has been easily taken care of with topicals. He also reports that he has been dealing with occasional wheezing, especially with exertion. He does tend to feel somewhat short of breath when this happens, but he uses inhalers, and his symptoms almost immediately improve. He reports no productive cough, and he has had no hemoptysis. He has had a good appetite, and his weight has been stable. He has had no significant nausea. He reports no abdominal pain or changes in bowel habits. He denies new urinary symptoms. He does report that he plans to return to the [place], [place] area, likely toward the beginning of January, and he plans to followup with Dr. Alston at the [facility] there. REVIEW OF SYSTEMS Otherwise negative, and all systems were reviewed. ONCOLOGY HISTORY 1. Malignant melanoma of scalp. a. Initial presentation with lesion on the left scalp, changing over the past six months prior to presentation. b. August 16, 2016: Biopsy of scalp lesion is performed. Pathology reveals malignant melanoma to 2.5 mm in depth. c. September 15, 2016: Patient undergoes wide local excision with sentinel lymph node biopsy. Pathology showed residual melanoma in the excision specimen , depth 1.1 mm. Scalp lymph node and lymph node in the parotid gland were positive for melanoma. Also, two of five sentinel lymph nodes were involved with melanoma (total of four of 10 positive lymph nodes). d. September 29, 2016: CT PET scan and MRI of brain are performed. There is no evidence of metastatic disease. e. November 03, 2016: Completion lymph node dissection, left parotidectomy with an additional two of 29 lymph nodes positive for melanoma. Patient is diagnosed with stage IIIC melanoma. f. Patient begins the S1404 clinical trial, and is randomized to the ipilimumab arm. g. 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 Patient also suffers subdural hematoma. He is treated with prednisone, Keppra recommended for three months. Subdural hematoma resolves spontaneously. h. Patient presents with recurrent mass behind left ear at site of scar. On July 11, 2017 this was surgically resected with pathology consistent with recurrent melanoma. i. July 2017: Initiation of nivolumab infusions. PAST MEDICAL HISTORY The patient is otherwise quite healthy. PAST SURGICAL HISTORY Please see history of present illness. Also, he has undergone left inguinal hernia repair, right shoulder surgery, and sinus surgery. CURRENT MEDICATIONS 1. Percocet p.r.n. 2. Dulera inhaler. 3. Flonase. 4. Keppra. 5. Prednisone 5 mg p.o. daily. ALLERGIES No known drug allergies. SOCIAL HISTORY Patient is a never smoker. He has about one alcoholic beverage per week. There is no history of illicit drug use. He lives at home with his . FAMILY HISTORY There is a history of Hodgkin's lymphoma in his mother, lung cancer in a maternal uncle, colon cancer in a paternal uncle. There is no known family history of melanoma or pancreatic malignancy. VITAL SIGNS Temperature is 96.6, blood pressure 106/74, heart rate is 77, respirations 16, oxygen saturation is 96% on room air. PHYSICAL EXAMINATION GENERAL: Patient is alert and oriented times three, in no apparent distress, sitting in the exam room chair. He is in good spirits, and quite interactive and pleasant. HEENT: Exam reveals anicteric sclerae. LUNGS: Exam reveals clear lungs bilaterally. HEART: Exam reveals regular rate and rhythm. NEUROLOGIC: Exam is grossly nonfocal. EXTREMITIES: Exam reveals no edema, clubbing or cyanosis. There is no erythema or tenderness to palpation of the extremities. LABORATORY STUDIES Reviewed per the [facility] record. ASSESSMENT AND PLAN Recurrent malignant melanoma. Juan Jose continues to tolerate ongoing nivolumab infusions without any evidence of immune-mediated toxicity beyond some very mild itching from time to time. We discussed his ongoing issues with periodic wheezing. He does seem to have an element of reactive airways disease. He had prior imaging that showed no evidence of pneumonitis, for example. I have recommended that he discuss things further with Dr. Angel to see whether the reactive airways disease could be improved. Patient agrees to make a phone call for an appointment. As discussed, he will continue with nivolumab infusions per protocol, and without alteration. We will try to help him make arrangements for followup and ongoing nivolumab infusions once he gets to [place]. I will plan to see him back in clinic in about one month, or sooner if there are questions or concerns. MTDD
== END 2017-12-12 ==
LOC: ONC 08:00
PROVIDERS: ATTEND Internal Medicine Medical Oncology
DX: Z51.11 Encounter for antineoplastic chemotherapy (principal); C43.4 Malignant melanoma of scalp and neck; Z79.899 Other long term (current) drug therapy; R06.02 Shortness of breath; K59.00 Constipation, unspecified
CPT/HCPCS: 71045; 71275; 83735; 84439; 84443; 84480; 84481; 85025; 85027; 96361; 96365; 96413; 96415; G0463; J7050; J9299; Q9967; 82040; 82247; 82310; 82374; 82435; 82565; 82947; 84075; 84132; 84155; 84295; 84450; 84460; 84520; 99212

== ENCOUNTER 2018-01-25 08:00 | Outpatient (RCR) | payer MEDICARE, OTHER ==
[2017-12-21] MEDS: NS(*) 0.9% 100 ML BAG 100 ML IVPB PRN (09:28)
[2017-12-21 10:01] VITALS: BP 132/90
[2017-12-21 10:15] VITALS: BP 126/72
[2018-01-04 08:10] VITALS: BP 117/101
[2018-01-04] MEDS: NS(*) 0.9% 100 ML BAG 100 ML IVPB PRN (08:30)
[2018-01-04 14:06] VITALS: BP 116/82
[2018-01-05 11:32] VITALS: BP 124/85
--- NOTE | 2018-01-06 17:47 | ONCOLOGY FOLLOW UP NOTE ---
EVENT DATE: January 05, 2018 REASON FOR FOLLOWUP Recurrent malignant melanoma of scalp. CHIEF COMPLAINT Bowel irregularity, skin nodule below left ear. INTERIM HISTORY Juan Jose returns to clinic for a follow-up visit today. He is accompanied by his . For the most part, he has been feeling better since our last visit. He has had a visit with his primary care doctor, and he is now using a nebulizer and a new inhaler with better control over his reactive airway disease. He reports no shortness of breath, wheezing, or productive cough today. He denies fever. He has had no severe abdominal pain, per se, but he has had some ongoing bowel irregularity. He reports no diarrhea, melena, or hematochezia. He denies new urinary symptoms. He has had no diffuse skin rash. The patient does plan to return to the [place], [place] area in about one month. He does plan to follow up at the [facility] there. In addition, he has visited with Dr. Harry in ENT, and another skin nodule has been removed from just below his left ear. Surgical pathology is pending from that specimen. REVIEW OF SYSTEMS Otherwise negative, and all systems are reviewed. ONCOLOGY HISTORY 1. Malignant melanoma of scalp. a. Initial presentation with lesion on the left scalp, changing over the past six months prior to presentation. b. August 16, 2016: Biopsy of scalp lesion is performed. Pathology reveals malignant melanoma to 2.5 mm in depth. c. September 15, 2016: Patient undergoes wide local excision with sentinel lymph node biopsy. Pathology showed residual melanoma in the excision specimen , depth 1.1 mm. Scalp lymph node and lymph node in the parotid gland were positive for melanoma. Also, two of five sentinel lymph nodes were involved with melanoma (total of four of 10 positive lymph nodes). d. September 29, 2016: CT PET scan and MRI of brain are performed. There is no evidence of metastatic disease. e. November 03, 2016: Completion lymph node dissection, left parotidectomy with an additional two of 29 lymph nodes positive for melanoma. Patient is diagnosed with stage IIIC melanoma. f. Patient begins the S1404 clinical trial, and is randomized to the ipilimumab arm. g. 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 Patient also suffers subdural hematoma. He is treated with prednisone, Keppra recommended for three months. Subdural hematoma resolves spontaneously. h. Patient presents with recurrent mass behind left ear at site of scar. On July 11, 2017 this was surgically resected with pathology consistent with recurrent melanoma. i. July 2017: Initiation of nivolumab infusions. PAST MEDICAL HISTORY The patient is otherwise quite healthy. PAST SURGICAL HISTORY Please see history of present illness. Also, he has undergone left inguinal hernia repair, right shoulder surgery, and sinus surgery. CURRENT MEDICATIONS 1. Percocet p.r.n. 2. Dulera inhaler. 3. Flonase. 4. Keppra. 5. Prednisone 5 mg p.o. daily. ALLERGIES No known drug allergies. SOCIAL HISTORY Patient is a never smoker. He has about one alcoholic beverage per week. There is no history of illicit drug use. He lives at home with his . FAMILY HISTORY There is a history of Hodgkin's lymphoma in his mother, lung cancer in a maternal uncle, colon cancer in a paternal uncle. There is no known family history of melanoma or pancreatic malignancy. VITAL SIGNS Temperature is 97.5, blood pressure 124/85, heart rate is 66, respirations 16, oxygen saturation is 97% on room air. PHYSICAL EXAMINATION GENERAL: Patient is alert and oriented times three, in no apparent distress, sitting in the exam room chair. He is in good spirits, and quite interactive. HEENT: Exam reveals anicteric sclerae. He does have a small incision and sutures under his left ear. NEUROLOGIC: Exam is grossly nonfocal and his gait is normal. SKIN: Exam is otherwise unremarkable. EXTREMITIES: Exam reveals no edema, clubbing or cyanosis. There is no erythema or tenderness to palpation of the extremities. LABORATORY STUDIES Reviewed per the [facility] record. IMAGING None today. ASSESSMENT AND PLAN Recurrent melanoma of scalp. I had a good visit with Juan Jose and his today. Symptomatically, he continues to do quite well with ongoing checkpoint inhibitor therapy. He has had improvement in his pulmonary symptoms, and this is encouraging. He has visited in the interim with Dr. Harry in ENT, and he recently had a small skin nodule removed from just under the left ear. There are concerns at this point that this could represent another recurrence of melanoma, but his surgical pathology is still pending. We will follow up on this. We spent time discussing that if this happens to be a benign nodule, I would recommend that he continue with nivolumab infusions. He agrees with this. On the other hand, if we see unfortunate evidence of another melanoma recurrence despite ongoing immunotherapy, we will need to consider a change in management. Either way, I do think he would be best served by undergoing another CT PET scan in the next few weeks. I would like to visit with him again before he leaves for [place], and we will arrange for this to happen. Juan Jose and his had several further questions for me today, and I believe I answered all of their questions to their satisfaction. MTDD
--- NOTE | 2018-01-10 16:10 | RADIOLOGY IMAGING REPORT ---
FAC[place] [facility] [place] NAME: Juan Jose Kelly : 1945 MR: [id number] V: [id number] EXAM DATE: ORDERING PHYSICIAN: NAOMIE MEDEL TECHNOLOGIST: Location: [facility] Patient: Juan Jose Kelly : 1945 Visit/Account:[id number] Date of Sevice: 01/10/2018 EXAMINATION: MRI Brain without intravenous contrast MRI Brain with intravenous contrast HISTORY: Headache. Scalp melanoma. COMPARISON: Noncontrast head CT dated 05/27/2017. TECHNIQUE: Multi-planar, multi-sequence brain MRI was performed before and after IV gadolinium. CONTRAST: 15 mL of IV MultiHance FINDINGS: Brain volume: Normal. Sagittal midline structures: Negative. Ventricles: Negative. Acute ischemic changes: None. Hemorrhage: None. Masses / edema: None. Enhancement: Negative. Molina-white: Negative. White matter: A few T2/FLAIR hyperintensities in the deep white matter bilaterally. Vessels: Negative. Extra-axial: Negative. Calvarium / scalp: Scalp defect on the left. Otherwise negative. Skull base: Negative. Visualized sinuses / orbits: Mild mucosal thickening in the maxillary sinuses and ethmoid air cells. Visualized upper neck: Negative. IMPRESSION: 1. No acute intracranial abnormality or mass. 2. No evidence of metastasis. 3. Scalp defect on the left is likely the site of the prior tumor. No evidence of recurrent tumor i n this location. 4. Mild chronic white matter changes, nonspecific but most likely representing chronic microvascular ischemia. 5. Mild mucosal thickening in the maxillary sinuses and ethmoid air cells. Report Dictated By: Rodrigo Hudson MD at 01/10/2018 4:01 PM Report E-Signed By: Rodrigo Hudson MD at 01/10/2018 4:07 PM WSN:[id number]
[2018-01-16 08:29] VITALS: BP 138/94
[~2018-01-25 08:00] MED LIST changes: +GADOBENATE 529MG/1ML 15ML VIAL IVP ONE; -IOPAMIDOL 76% 75 ML INFUS BTL 75 ML ONE; -NS 0.9% 150 ML BAG 150 ML ONE; +WATER FOR INJ,STERILE 20 ML IVP PRN; -WATER STERILE 10 ML VIAL IVP PRN
[2018-01-25 08:37] VITALS: BP 117/76
[2018-01-25 09:20] LABS: PLATELET COUNT, AUTOMATED 293 K/uL (150-450)
--- NOTE | 2018-01-25 16:27 | ONCOLOGY FOLLOW UP NOTE ---
EVENT DATE: January 25, 2018 REASON FOR FOLLOWUP Recurrent malignant melanoma of scalp. CHIEF COMPLAINT Fatigue. INTERIM HISTORY Juan Jose returns to clinic for a follow-up visit today. He reports that his headaches and fatigue are improving. He is currently taking low dose prednisone. He reports no fever. His shortness of breath and wheezing have persisted somewhat, but continue to be responsive to his inhalers. He has had a good appetite. He reports no new abdominal pain or changes in bowel habits. He has had no urinary symptoms. He has undergone a CT PET scan, and pathology results have returned from his prior resection of nodule near the left ear. REVIEW OF SYSTEMS Otherwise negative, and all systems were reviewed. ONCOLOGY HISTORY 1. Malignant melanoma of scalp. a. Initial presentation with lesion on the left scalp, changing over the past six months prior to presentation. b. August 16, 2016: Biopsy of scalp lesion is performed. Pathology reveals malignant melanoma to 2.5 mm in depth. c. September 15, 2016: Patient undergoes wide local excision with sentinel lymph node biopsy. Pathology showed residual melanoma in the excision specimen , depth 1.1 mm. Scalp lymph node and lymph node in the parotid gland were positive for melanoma. Also, two of five sentinel lymph nodes were involved with melanoma (total of four of 10 positive lymph nodes). d. September 29, 2016: CT PET scan and MRI of brain are performed. There is no evidence of metastatic disease. e. November 03, 2016: Completion lymph node dissection, left parotidectomy with an additional two of 29 lymph nodes positive for melanoma. Patient is diagnosed with stage IIIC melanoma. f. Patient begins the S1404 clinical trial, and is randomized to the ipilimumab arm. g. 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 Patient also suffers subdural hematoma. He is treated with prednisone, Keppra recommended for three months. Subdural hematoma resolves spontaneously. h. Patient presents with recurrent mass behind left ear at site of scar. On July 11, 2017 this was surgically resected with pathology consistent with recurrent melanoma. i. July 2017: Initiation of nivolumab infusions. j. Excisional biopsy of left postauricular nodule. Pathology consistent with metastatic melanoma, focally present at the inked specimen margin. k. January 13, 2018: CT PET scan reveals a small focus of warm glucose activity inferior to the left ear. There is no evidence of distant metastatic disease. PAST MEDICAL HISTORY The patient is otherwise quite healthy. PAST SURGICAL HISTORY Please see history of present illness. Also, he has undergone left inguinal hernia repair, right shoulder surgery, and sinus surgery. CURRENT MEDICATIONS 1. Percocet p.r.n. 2. Dulera inhaler. 3. Flonase. 4. Keppra. 5. Prednisone 5 mg p.o. daily. ALLERGIES No known drug allergies. SOCIAL HISTORY Patient is a never smoker. He has about one alcoholic beverage per week. There is no history of illicit drug use. He lives at home with his . FAMILY HISTORY There is a history of Hodgkin's lymphoma in his mother, lung cancer in a maternal uncle, colon cancer in a paternal uncle. There is no known family history of melanoma or pancreatic malignancy. VITAL SIGNS Temperature is 98.4, blood pressure 117/76, heart rate is 66, respirations 16, oxygen saturation is 98% on room air. Weight is 75.3 kg. PHYSICAL EXAMINATION GENERAL: Patient is alert and oriented times three, in no apparent distress, sitting in the exam room chair. He is thin. He is interactive and pleasant. He appears somewhat tired. HEENT: Exam reveals anicteric sclerae. NEUROLOGIC: Exam is grossly nonfocal and his gait is normal. EXTREMITIES: Exam reveals no edema, clubbing or cyanosis. There is no erythema or tenderness to palpation of the extremities. SKIN: Exam reveals no concerning rash or lesion. There is no hyperpigmentation. LABORATORY STUDIES Reviewed per the [facility] record. ASSESSMENT AND PLAN Recurrent melanoma. I had a good visit with Juan Jose and his today. We spent time discussing the results of his recent excisional biopsy of nodule near the left ear. Unfortunately, this has returned with evidence of recurrent melanoma once again. There was concern for melanoma at the inked margin, but he does have ENT followup planned for later this summer. We discussed the CT PET scan results, as well. There is no evidence of distant metastatic recurrence of the melanoma. I have recommended that Juan Jose be seen at the [facility] by Dr. Alston, as he does plan to return to [place] until the end of the summer or early fall. I do think it will be time for him to take a break from immunotherapy. There had been concerns recently for possible adrenal insufficiency. He is on low dose prednisone currently, and he did have a recent a.m. cortisol level drawn. This was undetectable. Keeping in mind that he was on the prednisone at the time, I do think it would be worthwhile for him to transition to hydrocortisone, as he has felt better on the low dose prednisone. Hopefully the hydrocortisone can be tapered over time. I will plan to see Juan Jose back for followup here in [place] at the end of the summer or early fall. [facility]
== END 2018-03-14 ==
LOC: ONC 08:00
PROVIDERS: ATTEND Internal Medicine Medical Oncology
DX: C43.4 Malignant melanoma of scalp and neck (principal); R06.02 Shortness of breath; R06.2 Wheezing
CPT/HCPCS: 36415; 82533; 83001; 83002; 83003; 83735; 84100; 84146; 84439; 84443; 84481; 85025; 85027; 96365; G0463; J7050; J9299; 70553; 82040; 82247; 82310; 82374; 82435; 82565; 82947; 84075; 84132; 84155; 84295; 84450; 84460; 84520; 99212; A9577

== ENCOUNTER 2018-07-19 08:00 | Outpatient (RCR) | payer MEDICARE, OTHER ==
[2018-05-10 08:09] VITALS: BP 134/77
--- NOTE | 2018-05-10 17:24 | ONCOLOGY FOLLOW UP NOTE ---
EVENT DATE: May 10, 2018 REASON FOR FOLLOWUP Recurrent malignant melanoma of scalp. CHIEF COMPLAINT Patient is feeling pretty good today. INTERIM HISTORY Juan Jose returns to clinic for a followup visit today. He is accompanied by his . He recently returned to [place]. While away, he had visited with Dr. Alston at the [facility]. Symptomatically, he reports that things have gone pretty well over the summer, and he had gone for a followup CT PET scan in March that looked "good." He reports some ongoing fatigue and some musculoskeletal pain, but no change. He reports no shortness of breath and no productive cough. He denies fever. He has noticed no worrisome skin changes or "bumps" of the scalp or neck. He has had a pretty good appetite, and his weight has been stable. He reports no new bowel or bladder symptoms. REVIEW OF SYSTEMS Otherwise negative, and all systems reviewed. ONCOLOGY HISTORY Malignant melanoma of scalp. a. Initial presentation with lesion on the left scalp, changing over the past six months prior to presentation. b. August 16, 2016: Biopsy of scalp lesion is performed. Pathology reveals malignant melanoma to 2.5 mm in depth. c. September 15, 2016: Patient undergoes wide local excision with sentinel lymph node biopsy. Pathology showed residual melanoma in the excision specimen, depth 1.1 mm. Scalp lymph node and lymph node in the parotid gland were positive for melanoma. Also, two of five sentinel lymph nodes were involved with melanoma (total of four of 10 positive lymph nodes). d. September 29, 2016: CT PET scan and MRI of brain are performed. There is no evidence of metastatic disease. e. November 03, 2016: Completion lymph node dissection, left parotidectomy with an additional two of 29 lymph nodes positive for melanoma. Patient is diagnosed with stage IIIC melanoma. f. Patient begins the S1404 clinical trial, and is randomized to the ipilimumab arm. g. 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 Patient also suffers subdural hematoma. He is treated with prednisone, Keppra recommended for three months. Subdural hematoma resolves spontaneously. h. Patient presents with recurrent mass behind left ear at site of scar. On July 11, 2017 this was surgically resected with pathology consistent with recurrent melanoma. i. July 2017: Initiation of nivolumab infusions. j. Excisional biopsy of left postauricular nodule. Pathology consistent with metastatic melanoma, focally present at the inked specimen margin. k. January 13, 2018: CT PET scan reveals a small focus of warm glucose activity inferior to the left ear. There is no evidence of distant metastatic disease. l. Malignant melanoma of scalp March 2018: CT PET scan reveals no evidence of FDG-avid disease. PAST MEDICAL HISTORY The patient is otherwise quite healthy. PAST SURGICAL HISTORY Please see history of present illness. Also, he has undergone left inguinal hernia repair, right shoulder surgery, and sinus surgery. CURRENT MEDICATIONS 1. Percocet p.r.n. 2. Dulera inhaler. ALLERGIES No known drug allergies. SOCIAL HISTORY Patient is a never smoker. He has about one alcoholic beverage per week. There is no history of illicit drug use. He lives at home with his . FAMILY HISTORY There is a history of Hodgkin's lymphoma in his mother, lung cancer in a maternal uncle, colon cancer in a paternal uncle. There is no known family history of melanoma or pancreatic malignancy. VITAL SIGNS Temperature is 98.0, blood pressure 134/77, heart rate is 63, respirations 16, oxygen saturation is 96% on room air. PHYSICAL EXAMINATION GENERAL: Patient is alert and oriented times three, in no apparent distress, sitting in the exam room chair. He is interactive and quite pleasant. HEENT: Anicteric sclerae. NECK: No palpable lymphadenopathy. SKIN: No concerning rash or lesion. There is no nodularity over the scalp. NEUROLOGIC: Grossly nonfocal, and his gait is normal. EXTREMITIES: No edema, clubbing, or cyanosis. There is no erythema or tenderness to palpation of the extremities. LABORATORY STUDIES Reviewed per the [facility] record. IMAGING Please see Oncology History. ASSESSMENT AND PLAN Recurrent melanoma of scalp. I had a good visit with Juan Jose and his today. Symptomatically, he is doing quite well. We spent time discussing his summer, which was uneventful from a medical standpoint. He did follow up with Dr. Alston while he was away, and we discussed the results of his March CT-PET scan, which is quite encouraging. We discussed that his risk of melanoma recurrence remains high, and we reviewed his experience with immunotherapy to date. He is no longer receiving nivolumab. He is a bit confused about his medications today. It does seem that he is taking hydrocortisone, which he calls hydrocodone, but he does not have his pill bottles or an accurate medication list today. I will ask my staff to work on this with Juan Jose. He had previously been dealing with treatment-induced adrenal insufficiency, and hopefully we may be able to wean his hydrocortisone over time if, indeed, he is currently taking it. We also discussed further testing on his melanoma that will be helpful. I believe that BRAF testing had been initiated previously. We will work to obtain these results. We discussed the possibility of BRAF mutation and the possibility of using oral therapy such as dabrafenib and trametinib in the future if and when there is evidence of melanoma recurrence. Juan Jose and his had several additional questions for me today, and I believe I answered all their questions to their satisfaction. I will plan to see him back in three months after repeat imaging, hopefully with CT PET scan, or sooner if there are questions or concerns. RADHA
[2018-06-26 09:32] VITALS: BP 136/83
[2018-06-26 09:55] LABS: PLATELET COUNT, AUTOMATED 283 K/uL (150-450)
[~2018-07-19 08:00] MED LIST changes: -ALTEPLASE RECOMB 2 MG VIAL IVP PRN; -DEXTROSE 5%(*) 100 ML BAG 100 ML IVPB PRN; +FLUT1BLS3 INH; -GADOBENATE 529MG/1ML 15ML VIAL IVP ONE; -HEPARIN FLSH (PORT) 500 UN/5ML IVP PRN; +HYDR-1 PO; +LEVO50TA86 PO; -LIDOCAINE/SOD BICARB 8.4% SYR ID PRN; +MOME30SO TP; -NIVOLUMAB 100 MG SDV 200 MG, NIVOLUMAB 40 MG/4 ML SDV 40 MG in NS(*) 0.9% 100 ML BAG 10... IV ONE; -NS(*) 0.9% 500 ML BAG 500 ML IV PRN; -WATER FOR INJ,STERILE 20 ML IVP PRN
[2018-07-19 08:04] VITALS: BP 131/69
[2018-07-19 09:01] LABS: PLATELET COUNT, AUTOMATED 285 K/uL (150-450)
--- NOTE | 2018-07-19 14:29 | ONCOLOGY FOLLOW UP NOTE ---
EVENT DATE: July 19, 2018 REASON FOR FOLLOWUP Recurrent malignant melanoma of scalp. CHIEF COMPLAINT Patient feels well today, but he reports that he has lost his hair. INTERIM HISTORY Juan Jose returns to clinic for a followup visit today. He is accompanied by his . He reports that things have been going fairly well in general. He reports a pretty good appetite and no weight loss. His energy level has been reasonably good. He denies fever. He has had no shortness of breath, chest pain, or cough. He denies abdominal pain and nausea. He has had no changes in bowel or bladder habits. He has noticed somewhat of a skin rash over his scalp and chest. He has noticed no new lumps or bumps in the neck. He relates that over the past few months, he has rather quickly lost the vast majority of his hair. His eyebrows and lashes are also thinning. REVIEW OF SYSTEMS Otherwise negative in all systems reviewed. ONCOLOGY HISTORY Malignant melanoma of scalp. a. Initial presentation with lesion on the left scalp, changing over the past six months prior to presentation. b. August 16, 2016: Biopsy of scalp lesion is performed. Pathology reveals malignant melanoma to 2.5 mm in depth. c. September 15, 2016: Patient undergoes wide local excision with sentinel lymph node biopsy. Pathology showed residual melanoma in the excision specimen, depth 1.1 mm. Scalp lymph node and lymph node in the parotid gland were positive for melanoma. Also, two of five sentinel lymph nodes were involved with melanoma (total of four of 10 positive lymph nodes). d. September 29, 2016: CT/PET scan and MRI of brain are performed. There is no evidence of metastatic disease. e. November 03, 2016: Completion lymph node dissection, left parotidectomy with an additional two of 29 lymph nodes positive for melanoma. Patient is diagnosed with stage IIIC melanoma. f. Patient begins the S1404 clinical trial, and is randomized to the ipilimumab arm. g. 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 Patient also suffers subdural hematoma. He is treated with prednisone, Keppra recommended for three months. Subdural hematoma resolves spontaneously. h. Patient presents with recurrent mass behind left ear at site of scar. On July 11, 2017, this was surgically resected with pathology consistent with recurrent melanoma. i. July 2017: Initiation of nivolumab infusions. j. Excisional biopsy of left postauricular nodule. Pathology consistent with metastatic melanoma, focally present at the inked specimen margin. k. January 13, 2018: CT/PET scan reveals a small focus of warm glucose activity inferior to the left ear. There is no evidence of distant metastatic disease. l. Malignant melanoma of scalp March 2018: CT/PET scan reveals no evidence of FDG-avid disease. m. June 28, 2018, CT/PET scan: No evidence of current melanoma or evidence of metastatic disease. PAST MEDICAL HISTORY The patient is otherwise quite healthy. PAST SURGICAL HISTORY Please see history of present illness. Also, he has undergone left inguinal hernia repair, right shoulder surgery, and sinus surgery. CURRENT MEDICATIONS 1. Percocet p.r.n. 2. Dulera inhaler. 3. Synthroid. 4. Hydrocortisone. ALLERGIES No known drug allergies. SOCIAL HISTORY Patient is a never smoker. He has about one alcoholic beverage per week. There is no history of illicit drug use. He lives at home with his . FAMILY HISTORY There is a history of Hodgkin's lymphoma in his mother, lung cancer in a maternal uncle, colon cancer in a paternal uncle. There is no known family history of melanoma or pancreatic malignancy. VITAL SIGNS Temperature is 96.7, blood pressure 131/69, heart rate is 62, respirations 16, oxygen saturation is 97% on room air. Weight is 74.1 kg. PHYSICAL EXAMINATION GENERAL: Patient is alert and oriented times three, in no apparent distress, sitting in the exam room chair. He is in good spirits and quite interactive. HEENT: Anicteric sclerae. SKIN: Diffuse alopecia and erythematous spotty rash over the chest and scalp without drainage, induration, or tenderness. NEUROLOGIC: Grossly nonfocal, and his gait is normal. EXTREMITIES: No edema, clubbing, or cyanosis. There is no tenderness to palpation. LABORATORY STUDIES Reviewed per the [facility] record. IMAGING Please see Oncology History. ASSESSMENT AND PLAN Recurrent melanoma of scalp. I had a good visit with Juan Jose and his today. Symptomatically, he continues to do remarkably well with the exception of hair loss which is striking. I am not, as discussed today, particularly sure why this is happening to him. He had recent labs performed, and his thyroid function was normal. He has not been receiving checkpoint inhibitor therapy recently. He has had no other change in medicines, and no known exposures. As discussed, I would want to recheck his labs today, including TSH. If we are unable to find another reason for his hair loss, I do think he should establish care with a primary care provider or discuss things further with a meeting specialist. His CT/PET scan results are encouraging, and we reviewed these today. I have recommended that he return to see me in clinic in three months' time after repeat imaging with CT/PET scan. He agrees to this plan. RADHA
== END 2018-08-07 ==
LOC: ONC 08:00
PROVIDERS: ATTEND Internal Medicine Medical Oncology
DX: C43.4 Malignant melanoma of scalp and neck (principal); R53.83 Other fatigue; L65.9 Nonscarring hair loss, unspecified
CPT/HCPCS: 36415; 83615; 83735; 84100; 84439; 84443; 85025; G0463; 82040; 82247; 82310; 82374; 82435; 82565; 82947; 84075; 84132; 84155; 84295; 84450; 84460; 84520; 99212

== ENCOUNTER 2018-10-18 08:14 | Outpatient (RCR) | payer MEDICARE, OTHER ==
[2018-09-20 14:30] VITALS: BP 142/85
--- NOTE | 2018-09-23 08:28 | ONCOLOGY FOLLOW UP NOTE ---
EVENT DATE: September 20, 2018 CHIEF COMPLAINT Followup for malignant melanoma of scalp. HISTORY OF PRESENT ILLNESS Patient is a 73-year-old male who is seen today was a work-in. He completed therapy with nivolumab in December 2017. Most recent CT PET scan on June 28, 2018 showed no evidence of recurrent or metastatic melanoma. Today, he has noted an approximately one month history of a posterior cervical lymph node on the left. He believes this has doubled in size over the past three weeks. He describes his scalp and left side of his neck as being chronically numb, unchanged. He was scheduled for a PET scan in October 2018 but wonders if this could be moved up. He otherwise denies any new complaints and has noted no new skin lesions. He continues with diffuse alopecia, now encompassing approximately 80% of his body. This has been continuing since April 2018. ONCOLOGY HISTORY Malignant melanoma of scalp. a. Initial presentation with lesion on the left scalp, changing over the past six months prior to presentation. b. August 16, 2016: Biopsy of scalp lesion is performed. Pathology reveals malignant melanoma to 2.5 mm in depth. c. September 15, 2016: Patient undergoes wide local excision with sentinel lymph node biopsy. Pathology showed residual melanoma in the excision specimen, depth 1.1 mm. Scalp lymph node and lymph node in the parotid gland were positive for melanoma. Also, two of five sentinel lymph nodes were involved with melanoma (total of four of 10 positive lymph nodes). d. September 29, 2016: CT/PET scan and MRI of brain are performed. There is no evidence of metastatic disease. e. November 03, 2016: Completion lymph node dissection, left parotidectomy with an additional two of 29 lymph nodes positive for melanoma. Patient is diagnosed with stage IIIC melanoma. f. Patient begins the S1404 clinical trial, and is randomized to the ipilimumab arm. g. 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 Patient also suffers subdural hematoma. He is treated with prednisone, Keppra recommended for three months. Subdural hematoma resolves spontaneously. h. Patient presents with recurrent mass behind left ear at site of scar. On July 11, 2017, this was surgically resected with pathology consistent with recurrent melanoma. i. Treated with nivolumab from July 2017 through January 04, 2018. j. Excisional biopsy of left postauricular nodule. Pathology consistent with metastatic melanoma, focally present at the inked specimen margin. BRAF detected. k. January 13, 2018: CT/PET scan reveals a small focus of warm glucose activity inferior to the left ear. There is no evidence of distant metastatic disease. l. Malignant melanoma of scalp March 2018: CT/PET scan reveals no evidence of FDG-avid disease. m. June 28, 2018, CT/PET scan: No evidence of current melanoma or evidence of metastatic disease. PAST MEDICAL HISTORY 1. Melanoma of the scalp, July 2016. 2. Exercise induced asthma. 3. Adrenal insufficiency. 4. Hypothyroidism. PAST SURGICAL HISTORY Multiple resections of melanoma (see oncology history). He has undergone left inguinal hernia repair, right shoulder surgery and sinus surgery. FAMILY HISTORY History of Hodgkin's lymphoma in his mother, lung cancer in a maternal uncle, colon cancer in a paternal uncle. No known family history of melanoma or pancreatic cancer. SOCIAL HISTORY Patient is . They have a ranch in [place] and spend time here in [place]. He is a never smoker. He has one alcoholic beverage a week. CURRENT MEDICATIONS 1. Albuterol inhaler p.r.n. 2. Fluticasone/vilanterol inhaler daily. 3. Hydrocortisone 10 mg q a.m. and 5 mg q p.m. 4. Levothyroxine 50 mcg daily. 5. Mometasone p.r.n. itching. ALLERGIES No known drug allergies. REVIEW OF SYSTEMS A 12-point review of systems is performed and is negative except as stated above. PHYSICAL EXAMINATION VITAL SIGNS: Blood pressure 142/85, pulse 75, respirations 16, temperature 98.3, O2 sat 93%. GENERAL: Patient is well-developed, well-nourished male in no acute distress. HEAD: Normocephalic, atraumatic. Complete alopecia. EYES: Sclerae anicteric. MOUTH: Moist mucous membranes. NECK: Well-healed incisions. Now has developed 0.5 cm oblong lymph node in the left posterior cervical area, nontender and fairly mobile. LUNGS: Clear bilaterally. CARDIOVASCULAR: Heart rate regular, 76 per minute without murmur, S3 or S4. EXTREMITIES: No edema. NEURO: Nonfocal. IMPRESSION AND PLAN The patient is a 73-year-old male with recurrent malignant melanoma of the scalp. He last completed therapy with nivolumab on January 04, 2018. 1. Melanoma. As he now has the appearance of a left cervical node, we will see if his PET scan can be done earlier. I am hopeful that this can be done within the next week. He is in agreement with this plan. 2. 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 He has lost his hair on approximately 80% of his body, which began in April 2018. Thyroid function tests on July 19, 2018 were within normal limits. 3. Adrenal insufficiency. Continue Hydrocortisone. 4. Follow up pending results of PET scan for continued care. RADHA
[2018-10-18 08:25] VITALS: BP 125/85
--- NOTE | 2018-10-18 12:52 | ONCOLOGY FOLLOW UP NOTE ---
EVENT DATE: October 18, 2018 REASON FOR FOLLOWUP Recurrent melanoma, scalp. HISTORY OF PRESENT ILLNESS Juan Jose returns to clinic for a followup visit today. I am seeing him today with Sveta Mendez NP. His was present for the entirety of today's discussion as well. Juan Jose reports that in general he has been feeling relatively well. He has had some ongoing issues with his breathing, previously attributed to reactive airway disease. Inhalers are helpful. He has pretty good energy level and no new pain. He reports no fever. His appetite is good. His weight has been stable. He has had no new problems with bowel or bladder habits. He reports no skin changes. Recently, he was noted to have a palpable lump in the left neck, which was of obvious concern. He was able to move up his followup CT/PET scan and he and his are here to review the results. In addition, remarkably, Juan Jose has lost what he estimates now to be about 90% of his body hair. This has not been particularly problematic but certainly notable. REVIEW OF SYSTEMS Otherwise negative and all systems reviewed. ONCOLOGY HISTORY Malignant melanoma of scalp. a. Initial presentation with lesion on the left scalp, changing over the past six months prior to presentation. b. August 16, 2016: Biopsy of scalp lesion is performed. Pathology reveals malignant melanoma to 2.5 mm in depth. c. September 15, 2016: Patient undergoes wide local excision with sentinel lymph node biopsy. Pathology showed residual melanoma in the excision specimen, depth 1.1 mm. Scalp lymph node and lymph node in the parotid gland were positive for melanoma. Also, two of five sentinel lymph nodes were involved with melanoma (total of four of 10 positive lymph nodes). d. September 29, 2016: CT/PET scan and MRI of brain are performed. There is no evidence of metastatic disease. e. November 03, 2016: Completion lymph node dissection, left parotidectomy with an additional two of 29 lymph nodes positive for melanoma. Patient is diagnosed with stage IIIC melanoma. f. Patient begins the S1404 clinical trial, and is randomized to the ipilimumab arm. g. 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 Patient also suffers subdural hematoma. He is treated with prednisone, Keppra recommended for three months. Subdural hematoma resolves spontaneously. h. Patient presents with recurrent mass behind left ear at site of scar. On July 11, 2017, this was surgically resected with pathology consistent with recurrent melanoma. i. July 2017: Initiation of nivolumab infusions. j. Excisional biopsy of left postauricular nodule. Pathology consistent with metastatic melanoma, focally present at the inked specimen margin. k. January 13, 2018: CT/PET scan reveals a small focus of warm glucose activity inferior to the left ear. There is no evidence of distant metastatic disease. l. Malignant melanoma of scalp March 2018: CT/PET scan reveals no evidence of FDG-avid disease. m. June 28, 2018, CT/PET scan: No evidence of current melanoma or evidence of metastatic disease. n. September 22, 2018, CT/PET: Probably negative evaluation for metastatic melanoma. Uptake at the base of the nose on the left is felt most likely to be inflammatory. Of note, there is no hypermetabolic activity in the left neck. There was no FD avid cervical lymphadenopathy. PAST MEDICAL HISTORY The patient is otherwise quite healthy. PAST SURGICAL HISTORY Please see history of present illness. Also, he has undergone left inguinal hernia repair, right shoulder surgery, and sinus surgery. CURRENT MEDICATIONS 1. Percocet p.r.n. 2. Dulera inhaler. 3. Synthroid. 4. Hydrocortisone. ALLERGIES No known drug allergies. SOCIAL HISTORY Patient is a never smoker. He has about one alcoholic beverage per week. There is no history of illicit drug use. He lives at home with his . FAMILY HISTORY There is a history of Hodgkin's lymphoma in his mother, lung cancer in a maternal uncle, colon cancer in a paternal uncle. There is no known family history of melanoma or pancreatic malignancy. VITAL SIGNS Temperature is 97.0, blood pressure 125/86, heart rate is 63, respirations 16, oxygen saturation is 96% on room air. Weight is 76.5 kg. PHYSICAL EXAMINATION GENERAL: Patient is alert and oriented x3, in no apparent distress, sitting in the exam room chair. He is in thin. He is interactive and pleasant. HEENT: Anicteric sclerae and absent eyebrows and eyelashes. There is no facial hair and he is completely bald. NEUROLOGIC: Grossly nonfocal and his gait is normal. NECK: Small palpable and mobile lymph node in the left neck. SKIN: Otherwise unremarkable. EXTREMITIES: No edema, clubbing or cyanosis. LABORATORY STUDIES Reviewed per the [facility] record. IMAGING Please see Oncology History. ASSESSMENT AND PLAN 1. Recurrent malignant melanoma. I had a good visit with Juan Jose and his today. Symptomatically, he continues to do remarkably well with the exception of almost complete loss of hair on his body. As discussed, we really have no choice at this point but to blame this on his prior immunotherapy. This has not been particularly problematic for Juan Jose but we did discuss seeing Dermatology again. He is not particularly interested. He does not have eyelashes and we discussed that he has lost an element of protection from dust and debris in the air so he needs to be particularly careful and consider eye protection when outside. We moved on to discuss the results of his recent CT/PET scan. There is no evidence of melanoma recurrence on this study. He was relieved to hear this. For the time being, we can keep an eye on this palpable cervical lymph node and he knows to call if it gets bigger over the next few weeks to months. I would like to see him again before he leaves for several months, which will likely be in January. We will tentatively plan this visit to happen in December. I would like for him to visit once as well with Sveta Mendez NP, in six weeks. He agrees with this plan. 2. Adrenal insufficiency. He remains on hydrocortisone and he seems to be doing well with this. We will continue for now. MTDD
== END 2018-12-19 ==
LOC: ONC 08:14
PROVIDERS: ATTEND Internal Medicine Medical Oncology
DX: C43.4 Malignant melanoma of scalp and neck (principal); R53.83 Other fatigue; L65.9 Nonscarring hair loss, unspecified; R59.0 Localized enlarged lymph nodes; E27.40 Unspecified adrenocortical insufficiency
CPT/HCPCS: 99212

== ENCOUNTER 2019-01-10 08:58 | Outpatient (RCR) | payer MEDICARE, OTHER ==
[2018-12-25 09:55] LABS: PLATELET COUNT, AUTOMATED 264 K/uL (150-450)
[2018-12-27 13:32] VITALS: BP 125/86
--- NOTE | 2018-12-28 11:09 | ONCOLOGY FOLLOW UP NOTE ---
EVENT DATE: December 27, 2018 CHIEF COMPLAINT Patient is here today for followup on his recurrent scalp melanoma. DIAGNOSIS Malignant melanoma of the scalp. HISTORY OF PRESENT ILLNESS Juan Jose returns to clinic for a followup visit today. Patient is accompanied in the office today by his . Juan Jose reports that overall he has been feeling fairly well. He does have a history of reactive airway disease and does use his inhalers. He has chronic sinusitis and continues to use nasal saline lavage at home. He has seen ENT in the past. He reports that his last major sinus infection, which necessitated antibiotic therapy, was one year ago. He reports that he had sinus surgery many years ago at the [place] [employer] level is fairly stable. He denies any new areas of pain and tells me that he really does not have any pain anywhere. He has not had any fevers. He has not had any GI changes, to include no nausea, vomiting, constipation or diarrhea. He has not had any fevers, chills or night sweats. He reports a very good appetite. He believes his weight has been stable. He has not had any bowel or bladder changes. He has not had any significant skin changes. He does continue to follow up with dermatology. He tells me that he saw Dr. Harry in [place], [place], last week for ongoing dermatology followup. He reports a lesion to the left scalp was removed last week, which was completely benign. This might have been frozen in the office. At his last visit, end of September 2018, he was noted to have a palpable lump in the left neck. This is of obvious concern and we are currently monitoring this. He had a PET/CT on September 22, 2018, which was negative for metastatic melanoma. Report states this was probably negative evaluation for metastatic melanoma, although there was uptake at the base of the nose on the left, which was most likely felt to be inflammatory. Of note, there was no hypermetabolic activity in the left neck. There was no FD avid cervical lymphadenopathy on that CT/PET. In addition, Juan Jose has been noted to have lost what he now estimates to be approximately 90% of his body hair. This is still the case today and has not grown back. He tells me has had one hair grow back on his chin. This has not been particularly problematic. However, this is certainly noticeable to the patient. Juan Jose tells me that he will be going to [place] at the end of this month, as they are going to visit and stay with his daughter while there. He is not planning to return back to [place] until end of April. ONCOLOGY HISTORY Malignant melanoma of scalp. a. Initial presentation with lesion on the left scalp, changing over the past six months prior to presentation. b. August 16, 2016: Biopsy of scalp lesion is performed. Pathology reveals malignant melanoma to 2.5 mm in depth. c. September 15, 2016: Patient undergoes wide local excision with sentinel lymph node biopsy. Pathology showed residual melanoma in the excision specimen, depth 1.1 mm. Scalp lymph node and lymph node in the parotid gland were positive for melanoma. Also, two of five sentinel lymph nodes were involved with melanoma (total of four of 10 positive lymph nodes). d. September 29, 2016: CT/PET scan and MRI of brain are performed. There is no evidence of metastatic disease. e. November 03, 2016: Completion lymph node dissection, left parotidectomy with an additional two of 29 lymph nodes positive for melanoma. Patient is diagnosed with stage IIIC melanoma. f. Patient begins the S1404 clinical trial, and is randomized to the ipilimumab arm. g. 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 Patient also suffers subdural hematoma. He is treated with prednisone, Keppra recommended for three months. Subdural hematoma resolves spontaneously. h. Patient presents with recurrent mass behind left ear at site of scar. On July 11, 2017, this was surgically resected with pathology consistent with recurrent melanoma. i. July 2017: Initiation of nivolumab infusions. j. Excisional biopsy of left postauricular nodule. Pathology consistent with metastatic melanoma, focally present at the inked specimen margin. k. January 13, 2018: CT/PET scan reveals a small focus of warm glucose activity inferior to the left ear. There is no evidence of distant metastatic disease. l. Malignant melanoma of scalp March 2018: CT/PET scan reveals no evidence of FDG-avid disease. m. June 28, 2018, CT/PET scan: No evidence of current melanoma or evidence of metastatic disease. n. September 22, 2018, CT/PET: Probably negative evaluation for metastatic melanoma. Uptake at the base of the nose on the left is felt most likely to be inflammatory. Of note, there is no hypermetabolic activity in the left neck. There was no FD avid cervical lymphadenopathy. PAST MEDICAL HISTORY The patient is otherwise quite healthy. PAST SURGICAL HISTORY Please see history of present illness. Also, he has undergone left inguinal hernia repair, right shoulder surgery, and sinus surgery. FAMILY HISTORY There is a history of Hodgkin's lymphoma in his mother, lung cancer in a maternal uncle, colon cancer in a paternal uncle. There is no known family history of melanoma or pancreatic malignancy. SOCIAL HISTORY Patient is a never smoker. He has about one alcoholic beverage per week. There is no history of illicit drug use. He lives at home with his . ALLERGIES No known drug allergies. MEDICATIONS 1. Percocet p.r.n. 2. Dulera inhaler. 3. Synthroid. 4. Hydrocortisone. REVIEW OF SYSTEMS CONSTITUTIONAL: Patient denies any fevers, chills or night sweats. No recent infections. He does have some difficulty with sinus issues but is using nasal lavage at home. HEENT: Chronic sinusitis per above. No vision changes. No tinnitus. No epistaxis. No unusual mouth sores. NECK: Patient still notices the palpable left sided cervical lump, although this has not grown in size. It is not particularly painful, simply noticeable. CARDIOVASCULAR: No chest pain. No syncope or presyncope. RESPIRATORY: He does have issues at times with reactive airway disease and is using inhalers. Otherwise, no significant cough or abnormal sputum production. No hemoptysis or pleuritic chest pain. GI: No abdominal pain. No nausea, vomiting, constipation, diarrhea, bright red blood per rectum or melena. Appetite is good. PSYCH: He denies any severe anxiety, severe depression, suicidal or homicidal ideation. NEURO: He denies any headaches or seizure like activity. No reports of paresthesias. MUSCULOSKELETAL: No focal areas of pain. DERM: History of recurrent melanoma of the scalp. He continues to follow up with dermatology routinely. He saw dermatology last week in [place]. He reports an area was removed, which was benign. He hasn't noticed any other suspicious lesions. The remainder of a 12-point review of systems is performed today and is otherwise negative. PHYSICAL EXAMINATION VITAL SIGNS: Weight today 174.2 pounds, up from previous weight of 168 pounds in September. T 97.1, P 65, R 16, BP 125/86, oxygen saturation 96% room air. Currently rates his pain level was "0/10". Currently reports zero reportable fatigue. GENERAL: This is a pleasant 73-year old gentleman who appears well-hydrated, well-nourished and is in no acute distress. His is with him at chairside. HEAD: Atraumatic, normocephalic. There is no facial hair and he is completely bald. EYES: Sclerae anicteric. Noticeable for absent eyebrows and eyelashes. ENT/MOUTH: No mucositis or signs of thrush. No suspicious oral ulcerations. NECK: Supple. No lymphadenopathy. No JVD. There is still a small palpable and freely mobile lymph node noted in the left cervical chain. This is approximately less than 0.5 cm in total diameter. This is largely unchanged compared to last exam. LUNGS: Clear breath sounds to auscultation bilaterally. No wheezes, rales or rhonchi. CARDIOVASCULAR: Regular rate and rhythm. No ectopy. GI: Abdomen soft, nontender, nondistended. Bowel sounds positive x4. NEURO: Patient is awake, alert, oriented x3. No focal motor or sensory deficits. PSYCH: Mood and affect are appropriate today. EXTREMITIES: No edema. No clubbing or cyanosis. MUSCULOSKELETAL: Gait is steady. DERM: Healed incisions noted to the scalp. No other suspicious lesions on cursory examination. LABORATORY CBC on December 25, 2018: WBC 5.5, ANC 3.6, hemoglobin 15.6, hematocrit 46.1%, platelets 264,000. CMP on the same date: Completely normal. Serum creatinine normal at 0.90. Total protein normal at 7.5 with albumin normal at 4.5. Labs added today include LDH, TSH, free T3 and free T4. LDH resulted back at 428, normal. TSH returned back at 1.29 with Free T4 1.01. Free T3 is still currently pending. ASSESSMENT AND PLAN This is a pleasant 73-year old gentleman with recurrent malignant melanoma. Symptomatically, he continues to do remarkably well with the exception of almost complete loss of hair on his body. As discussed, we really have no choice at this point but to blame this on his prior immunotherapy. This has not been particularly problematic for the patient and we have previously discussed seeing Dermatology again for this but he was not interested. He did see Dermatology last week for routine examination. He tells me that no suspicious or malignant areas were noted or removed. One area to the scalp was removed, which was benign. He still does not have any eyelashes and we again discussed how body hair in general is protection for us and, therefore, without any eyelashes he has lost an element of protection from dust and debris in the air. We cautioned that he does need to continue to be careful with this and consider eye protection when outside. This does tend to make him tear a bit. Most recent PET CT on September 22, 2018, did not reveal any evidence of recurrence. He does still have a left sided palpable cervical lymph node. It has not changed in size, it is freely mobile, although is still present. 1. Recurrent malignant melanoma: We would like for patient to have a repeat PET CT to continue to monitor for any recurrence. Most recent PET CT in September 2018 was negative, although patient does have a left cervical lymph node. I have written orders for PET CT today. I have asked the patient to try and get this down the last week of December while he is still in town as he will then be leaving out of state to [place] for approximately four months. The patient and his verbalized understanding. 2. 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 He remains on hydrocortisone daily and seems to be doing well with this. We will continue to follow this for now. 3. I added labs to evaluate thyroid and also added an LDH due to his melanoma diagnosis. Patient would like a refill on his levothyroxine and hydrocortisone as he will be leaving for a few months. He is requesting a 90-day supply. I explained to patient and his that I will hold off on refilling these until all of his labs have returned. Once these return and if they are normal, we will continue with both medications at the same dose and we will send in a 90- day supply so that he has enough while out of state. Alternatively, the patient has established care with an oncologist locally in [place], Dr. Alston, so if there were any issues he could certainly see her for followup and/or medication refill. Additionally, he is a patient of Dr. Angel here locally, his PCP. 4. I have asked the patient to return to the clinic for followup with Dr. Neville when he returns back to [place] sometime in April of this year. Once he has PET scan done at the end of this month, we will certainly call him with results since he will be out of state. [facility] SERVICES[facility]
[2019-01-10 09:01] VITALS: BP 135/85
--- NOTE | 2019-01-10 11:12 | ONCOLOGY FOLLOW UP NOTE ---
EVENT DATE: January 10, 2019 CHIEF COMPLAINT Patient is here for ongoing followup regarding his recurrent scalp melanoma, here to review recent re-staging PET scan results. DIAGNOSIS Malignant melanoma of the scalp. HISTORY OF PRESENT ILLNESS Juan Jose returns to clinic for a followup visit today. Patient is accompanied in the office today by his . Juan Jose reports that overall he has been feeling fairly well. He does have a history of reactive airway disease and does use his inhalers. He has chronic sinusitis and continues to use nasal saline lavage at home. He has seen ENT in the past. He reports that his last major sinus infection, which necessitated antibiotic therapy, was one year ago. He reports that he had sinus surgery many years ago at the [place]. Energy level is fairly stable. He denies any new areas of pain and tells me that he really does not have any pain anywhere. He has not had any fevers. He has not had any GI changes, to include no nausea, vomiting, constipation or diarrhea. He has not had any fevers, chills or night sweats. He reports a very good appetite. He believes his weight has been stable. He has not had any bowel or bladder changes. He has not had any significant skin changes. He continues to follow with dermatology. He saw Dr. Harry in [place], [place] recently and had some areas that were benign frozen off in office. In September 2018, he was noted to have a palpable lymph node in the left neck/cervical chain. This is of obvious concern and we are continuing to monitor this. It has not gotten larger. He had a PET CT on September 22, 2018, which was negative for metastatic melanoma, although there was uptake at the base of the nose on the left, which is most likely felt to be inflammatory. Of note, there was no hypermetabolic activity in the left neck. There was no FD avid cervical lymphadenopathy on that CT/PET. In addition, it should be noted that Juan Jose has lost approximately 90% of his body hair. This is still the case today and has not grown back. This has not been particularly problematic. The patient will be leaving to [place] at the end of this week to visit and stay with his two daughters while there. He is not planning on returning back to [place] until end of April/early May. He had a recent re-staging PET CT on January 08, 2019, and is here to discuss those results prior to leaving for vacation. ONCOLOGY HISTORY Malignant melanoma of scalp. a. Initial presentation with lesion on the left scalp, changing over the past six months prior to presentation. b. August 16, 2016: Biopsy of scalp lesion is performed. Pathology reveals malignant melanoma to 2.5 mm in depth. c. September 15, 2016: Patient undergoes wide local excision with sentinel lymph node biopsy. Pathology showed residual melanoma in the excision specimen, depth 1.1 mm. Scalp lymph node and lymph node in the parotid gland were positive for melanoma. Also, two of five sentinel lymph nodes were involved with melanoma (total of four of 10 positive lymph nodes). d. September 29, 2016: CT/PET scan and MRI of brain are performed. There is no evidence of metastatic disease. e. November 03, 2016: Completion lymph node dissection, left parotidectomy with an additional two of 29 lymph nodes positive for melanoma. Patient is diagnosed with stage IIIC melanoma. f. Patient begins the S1404 clinical trial, and is randomized to the ipilimumab arm. g. 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 Patient also suffers subdural hematoma. He is treated with prednisone, Keppra recommended for three months. Subdural hematoma resolves spontaneously. h. Patient presents with recurrent mass behind left ear at site of scar. On July 11, 2017, this was surgically resected with pathology consistent with recurrent melanoma. i. July 2017: Initiation of nivolumab infusions. j. Excisional biopsy of left postauricular nodule. Pathology consistent with metastatic melanoma, focally present at the inked specimen margin. k. January 13, 2018: CT/PET scan reveals a small focus of warm glucose activity inferior to the left ear. There is no evidence of distant metastatic disease. l. Malignant melanoma of scalp March 2018: CT/PET scan reveals no evidence of FDG-avid disease. m. June 28, 2018, CT/PET scan: No evidence of current melanoma or evidence of metastatic disease. n. September 22, 2018, CT/PET: Probably negative evaluation for metastatic melanoma. Uptake at the base of the nose on the left is felt most likely to be inflammatory. Of note, there is no hypermetabolic activity in the left neck. There was no FD avid cervical lymphadenopathy. o. January 08, 2019: PET/CT whole body: No hypermetabolic findings of concern for metastatic disease. Persistent but decreasing increased FDG uptake at the base of the nose, otherwise not significantly changed from prior exams and likely representing benign inflammation or artifact. PAST MEDICAL HISTORY The patient is otherwise quite healthy. PAST SURGICAL HISTORY Please see history of present illness. Also, he has undergone left inguinal hernia repair, right shoulder surgery, and sinus surgery. FAMILY HISTORY There is a history of Hodgkin's lymphoma in his mother, lung cancer in a maternal uncle, colon cancer in a paternal uncle. There is no known family history of melanoma or pancreatic malignancy. SOCIAL HISTORY Patient is a never smoker. He has about one alcoholic beverage per week. There is no history of illicit drug use. He lives at home with his . ALLERGIES No known drug allergies. MEDICATIONS 1. Percocet p.r.n. 2. Dulera inhaler. 3. Synthroid. 4. Hydrocortisone. REVIEW OF SYSTEMS CONSTITUTIONAL: Juan Jose denies any recent fevers, chills or night sweats. No recent infections. He has had some difficulty with sinus issues but uses nasal lavage at home several times a day. This has been chronic. HEENT: Chronic sinusitis per above. No vision changes. No tinnitus. No epistaxis. No unusual mouth sores. NECK: Patient still notices the palpable left sided cervical lump, although this has not grown in size. This actually appears smaller and less noticeable to the patient. CARDIOVASCULAR: No chest pain. No syncope or presyncope. RESPIRATORY: He does have issues at times with reactive airway disease and is using inhalers. Otherwise, no significant cough or abnormal sputum production. No hemoptysis or pleuritic chest pain. GI: No abdominal pain. No nausea, vomiting, constipation, diarrhea, bright red blood per rectum or melena. Appetite is good. PSYCH: He denies any severe anxiety, severe depression, suicidal or homicidal ideation. NEURO: He denies any headaches or seizure like activity. No reports of paresthesias. MUSCULOSKELETAL: No focal areas of pain. DERM: History of recurrent melanoma of the scalp. He continues to follow up with dermatology routinely. He recently saw dermatology in early December this year. Some areas were removed, which were benign. He has not noticed any other suspicious lesions. The remainder of a 12-point review of systems is performed today and is otherwise negative. PHYSICAL EXAMINATION VITAL SIGNS: Weight today 76.5 kg, stable. T 97.0 degrees Fahrenheit, P 63, R 16, BP 135/85, oxygen saturation 96% room air. GENERAL: This is a pleasant 73-year old gentleman who appears well-hydrated, well-nourished and is in no acute distress. His is with him at chairside. HEAD: Atraumatic, normocephalic. There is no facial hair and he is completely bald. EYES: Sclerae anicteric. Noticeable for absent eyebrows and eyelashes. ENT/MOUTH: No mucositis or signs of thrush. No suspicious oral ulcerations. NECK: Supple. No lymphadenopathy. No JVD. There is still a small palpable and freely mobile lymph node noted in the left cervical chain. This appears smaller and less obvious than our last visit a couple of weeks ago. This is approximately 0.2 to 0.3 cm in total diameter. LUNGS: Clear breath sounds to auscultation bilaterally. No wheezes, rales or rhonchi. CARDIOVASCULAR: Regular rate and rhythm. No ectopy. GI: Abdomen soft, nontender, nondistended. Bowel sounds positive x4. NEURO: Patient is awake, alert, oriented x3. No focal motor or sensory deficits. PSYCH: Mood and affect are appropriate today. EXTREMITIES: No edema. No clubbing or cyanosis. MUSCULOSKELETAL: Gait is steady. DERM: Healed incisions noted to the scalp. No other suspicious lesions on cursory examination. LABORATORY No labs today. See labs from December 25, 2018. IMAGING Whole body PET/CT: PET imaging in [facility] on January 08, 2019: 1. No hypermetabolic findings of concern for metastatic disease. 2. Persistent but decreasing increased FDG uptake at the base of the nose, otherwise not significantly changed from prior exam and likely representing benign inflammation or artifact. IMPRESSION AND PLAN This is a pleasant 73-year old gentleman with recurrent malignant melanoma. Symptomatically, he continues to do remarkably well with the exception of almost complete loss of hair on his body. As discussed, we really have no choice at this point but to blame this on his prior immunotherapy. This has not been particularly problematic for the patient and we have previously discussed seeing Dermatology again for this but he was not interested. He recently saw Dermatology earlier this month for routine examination and, per his report, no suspicious or malignant areas were noted. He had an area of the scalp removed, which was benign. He still does not have any eyelashes and we again discussed how body hair in general is protection for us and, therefore, without any eyelashes he has lost an element of protection from dust and debris in the air. We cautioned that he needs to continue to be careful with this and consider eye protection when outside. This does tend to make him tear a bit. His last CT on September 22, 2018, did not reveal any evidence of recurrence, although there is still a left sided palpable cervical lymph node, which is freely mobile and has not significantly changed and has not increased in size. We recently ordered a re-staging PET CT, which he had done a couple of days ago. He will be leaving for [place] for the summer and the end of this week. 1. Recurrent malignant melanoma: We reviewed his re-staging PET/CT from January 08, 2019. This was a negative PET scan. Discussed that there is some area of uptake at the left base of the nose, which was seen on prior PET scan and the FDG uptake has actually decreased a bit and is consistent with inflammatory findings. This can certainly be related to his chronic sinusitis. 2. Chronic sinusitis: He is to continue with his nasal lavage and warm compresses, which he does several times per day. He will follow-up with ENT as needed. 3. 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 He remains on hydrocortisone daily and we recently refilled this for him. 4. He does not need any refills for his levothyroxine. This was sent after his last visit. Both were given a 90 day supply. Alternatively, patient has established care with an oncologist locally in [place], Dr. Alston, so if there are any issues while he is there he is aware that he can follow up with that office. Additionally, he has a PCP in [facility], Dr. Angel. 5. Left cervical lymph node: Appears smaller today, less obvious and is still freely mobile. This is suggestive of an inflammatory response and we will continue to monitor this. He is aware to inform us of any changes, increased size in that area or other areas. 6. I have asked the patient to return to the clinic in approximately five months, in early May when he returns back to the state from his vacation in [place]. 7. I have asked our office to [facility] where he had his most recent PET CT on January 08, 2019, as report states that there was no comparison. I've requested comparison with amended report to state comparison to last PET/CT from September 22, 2018. I explained this to patient. At this point, no changes in plan will be made. TOOTIED
== END 2019-01-26 09:11 | disposition home or self-care (01) ==
LOC: ONC 08:58
PROVIDERS: ATTEND Internal Medicine Medical Oncology
DX: C43.4 Malignant melanoma of scalp and neck (principal); C77.9 Secondary and unspecified malignant neoplasm of lymph node, unspecified; E27.8 Other specified disorders of adrenal gland; J32.9 Chronic sinusitis, unspecified; E27.40 Unspecified adrenocortical insufficiency
CPT/HCPCS: 36415; 83615; 84439; 84443; 84481; 85025; G0463; 82040; 82247; 82310; 82374; 82435; 82565; 82947; 84075; 84132; 84155; 84295; 84450; 84460; 84520; 99212